=== PATIENT | male | born 1940 | race Caucasian/White ===

== ENCOUNTER 2019-12-23 10:46 | Outpatient (CLI) | payer OTHER, SELFPAY ==
--- NOTE | ~2019-12-23 | CT_ITS ---
EXAMINATION: CT abdomen wo con EXAM DATE: 12/23/2019 11:26 INDICATION: Pancreatic cystic lesion. TECHNIQUE: Spiral CT of the abdomen was performed without contrast. Axial, coronal and sagittal loraine ges were reviewed. The dose-length product (DLP) for this examination was 581.83 mGy-cm. The exposu re was tailored according to patient size (auto mA exposure control), and iterative reconstruction (A SIR) was used as additional dose reduction technique. Comparison is made to prior examination from , 05/23/2018. FINDINGS: Pancreatic head cystic lesion measuring 1.5 x 2.0 cm is unchanged going back to May 16. This likely benign histology. The differential diagnosis includes pseudocyst, intraductal papilla ry mucinous neoplasm (IPMN), mucinous cystic neoplasm (MCN), and the less common serous cystadenoma a nd neuroendocrine tumor. Correlate for history of pancreatitis. A longer interval, 2 year follow-up C T should be considered. The liver, spleen, adrenal glands and pancreas are otherwise unremarkable. Gallbladder is unremarkab le. No biliary obstruction. There is left inferior calyceal stone measuring 6 mm. Scattered small r enal lesions bilaterally consistent with cysts and mildly hemorrhagic cysts, also unchanged. There is no retroperitoneal lymphadenopathy. There is mild scattered arteriosclerotic disease. The stomach and small bowel are unremarkable. There is expected amount of colonic stool. No free i ntraperitoneal gas. The heart is normal in size. There are no pericardial or pleural effusions. R ight hemipelvis Paget's disease. Several small basilar calcified and noncalcified nodules unchanged, granulomas. IMPRESSION: 1. Stable pancreatic cystic lesion likely benign. Consider follow-up CT in 2 years. 2. Left nephrolithiasis. 3. Pelvic Paget's disease. Reviewed, dictated and finalized at location A. IMPRESSION: 1. Stable pancreatic cystic lesion likely benign. Consider follow-up CT in 2 y ears. 2. Left nephrolithiasis. 3. Pelvic Paget's disease.
== END 2019-12-23 10:47 | disposition home or self-care (01) ==
LOC: ANHIMG 10:48
PROVIDERS: PCP Internal Medicine; Visit Provider Internal Medicine
DX: K86.2 Cyst of pancreas (principal); N20.0 Calculus of kidney; M88.88 Osteitis deformans of other bones
CPT/HCPCS: 74150

== ENCOUNTER 2019-12-30 09:08 | Outpatient (CLI) | payer OTHER, SELFPAY ==
--- NOTE | 2019-12-30 11:30 | NEURO_ITS ---
Patient Number: [id number] Impression: # Complains of numbness of hands. # Bilateral mild Carpal Tunnel Syndrome. # Ulnar to median crossover innervation noted at wrist. # Normal needle/EMG exam. # Clinical correlation recommended. Nerve Conduction Studies Anti Sensory Summary Table Stim Site NR Peak (ms) P-T Amp (?V) Site1 Site2 Delta-P (ms) Dist (cm) Giacomo (m/s) Left Median Anti Sensory (2-3nd Digit) NO RESPONSE Wrist NR Wrist 2-3nd Digit 14.0 Wrist NR Wrist 2-3nd Digit 14.0 Right Median Anti Sensory (2-3nd Digit) Wrist 4.6 3.6 Wrist 2-3nd Digit 4.6 14.0 30 Wrist 5.2 0.5 Wrist 2-3nd Digit 4.6 14.0 30 Left Radial Anti Sensory (Base 1st Digit) Wrist 3.1 17.3 Wrist Base 1st Digit 3.1 0.0 Right Radial Anti Sensory (Base 1st Digit) Wrist 2.6 16.2 Wrist Base 1st Digit 2.6 0.0 Left Ulnar Anti Sensory (5th Digit) Wrist 3.0 9.9 Wrist 5th Digit 3.0 14.0 47 Right Ulnar Anti Sensory (5th Digit) Wrist 3.0 35.3 Wrist 5th Digit 3.0 14.0 47 Motor Summary Table Stim Site NR Onset (ms) O-P Amp (mV) Site1 Site2 Delta-0 (ms) Dist (cm) Giacomo (m/s) Left Median Motor (Abd Poll Brev) Wrist 4.1 1.4 Elbow Wrist 6.6 34.0 52 Elbow 10.7 1.6 Right Median Motor (Abd Poll Brev) Wrist 4.2 0.3 Elbow Wrist 5.5 30.0 55 Elbow 9.7 0.3 Left Ulnar Motor (Abd Dig Minimi) Wrist 3.0 3.7 A Elbow Wrist 5.6 32.0 57 A Elbow 8.6 2.9 Right Ulnar Motor (Abd Dig Minimi) Wrist 3.0 5.2 A Elbow Wrist 5.5 31.0 56 A Elbow 8.5 3.0 F Wave Studies NR F-Lat (ms) L-R F-Lat (ms) Left Median (Mrkrs) (Abd Poll Brev) 30.13 0.89 Right Median (Mrkrs) (Abd Poll Brev) 29.24 0.89 Left Ulnar (Mrkrs) (Abd Dig Min) 31.32 1.01 Right Ulnar (Mrkrs) (Abd Dig Min) 30.31 1.01 EMG Side Muscle Nerve Root Ins Act Fibs Amp Dur Recrt Comment Right 1stDorInt Ulnar C8-T1 Nml Nml Nml Nml Nml Right Ext Indicis Radial (Post Int) C7-8 Nml Nml Nml Nml Nml Right Ext Digitorum Radial (Post Int) C7-8 Nml Nml Nml Nml Nml Right BrachioRad Radial C5-6 Nml Nml Nml Nml Nml Right PronatorTeres Median C6-7 Nml Nml Nml Nml Nml Right Abd Poll Brev Median C8-T1 Nml Nml Nml Nml Nml Left 1stDorInt Ulnar C8-T1 Nml Nml Nml Nml Nml Left Ext Indicis Radial (Post Int) C7-8 Nml Nml Nml Nml Nml Left Ext Digitorum Radial (Post Int) C7-8 Nml Nml Nml Nml Nml Left BrachioRad Radial C5-6 Nml Nml Nml Nml Nml Left PronatorTeres Median C6-7 Nml Nml Nml Nml Nml Left Abd Poll Brev Median C8-T1 Nml Nml Nml Nml Nml Right ABD Dig Min Ulnar C8-T1 Nml Nml Nml Nml Nml Left ABD Dig Min Ulnar C8-T1 Nml Nml Nml Nml Nml MTDD
== END 2019-12-30 09:09 | disposition home or self-care (01) ==
LOC: ANHNEURO 09:10
PROVIDERS: PCP Internal Medicine; Visit Provider Internal Medicine
DX: R20.0 Anesthesia of skin (principal); G56.03 Carpal tunnel syndrome, bilateral upper limbs
CPT/HCPCS: 95886; 95911

== ENCOUNTER 2020-01-15 13:58 | Outpatient (CLI) | payer OTHER, SELFPAY ==
--- NOTE | 2020-01-15 13:59 | ECG_ITS ---
Measurements Intervals [place] Rate: 73 P: 16 MI: 197 QRS: -28 QRSD: 106 T: 9 QT: 366 QTc: 406 Interpretive Statements SINUS RHYTHM NORMAL ECG Electronically Signed On 01-15-2020 14:41:25 CDT by Robinson Hansen D.O.
== END 2020-01-15 13:59 | disposition home or self-care (01) ==
PROVIDERS: PCP Internal Medicine; Visit Provider Orthopaedic Surgery
DX: I10 Essential (primary) hypertension (principal)
CPT/HCPCS: 93005

== ENCOUNTER 2020-01-24 01:30 | Outpatient (CLI) | payer OTHER, SELFPAY ==
[2020-01-24 19:30] LABS: SARS-CoV-2 RNA PCR Negative
== END 2020-01-24 01:31 | disposition home or self-care (01) ==
LOC: ANHCOVIDDT 01:31
PROVIDERS: PCP Internal Medicine; Visit Provider Orthopaedic Surgery
DX: Z01.812 Encounter for preprocedural laboratory examination (principal); Z11.59 Encounter for screening for other viral diseases
CPT/HCPCS: 87635; C9803; U0003

== ENCOUNTER 2020-01-27 00:47 | Day surgery (SDC) | payer OTHER, SELFPAY ==
[2020-01-14 12:06] VITALS: BMI 29.3
--- NOTE | 2020-01-26 08:11 | PM.IMHP ---
H&P: HPI History of Present Illness Date/Time: Knee Pain Pt presents with Right knee pain. He had an MRI 06/15/19. Pt has had RICE, HEP, etc that no longer provide relief. He has not had any previous injuries or surgical procedures. Involved knee: right Onset: gradual Location of pain: medial, lateral, anterior and inferior Character: stabbing, dull ache and shooting Timing of pain: intermittent Exacerbated by: squatting, stairs and prolonged activity Relieved by: ice and rest Associated symptoms: Reports swelling, giving way and stiffness History of occupational/recreational activity with repetitive motion: No History of prior knee injury: No Chief complaint: Right Knee Medial Meniscus Tear Review of Systems Review of Systems: All systems reviewed & are unremarkable except as noted in HPI and below Constitutional: Constitutional: Denies headache(s) and Denies weakness Eyes: Eyes: Denies blurry vision, Denies change in vision and Denies loss of vision ENT: Denies dizziness, Denies dry mouth, Denies headache(s) and Denies nasal congestion Cardiovascular: Cardiovascular: Denies chest pain, Denies syncope, Denies leg edema and Denies dyspnea on exertion Respiratory: Respiratory: Denies cough and Denies dyspnea on exertion Gastrointestinal: Gastrointestinal: Denies abdominal pain, Denies constipation and Denies diarrhea Genitourinary: Genitourinary: Denies urinary frequency Musculoskeletal: Musculoskeletal: Reports as per HPI and Denies numbness Integumentary/Breasts: Skin/Breast: Reports system reviewed and no additional complaints, except as docu Neurologic: Denies dizziness, Denies syncope, Denies headache(s), Denies loss of vision, Denies numbness and Denies weakness Psychiatric: Psychiatric: Reports no additional psychiatric complaints Endocrine: Endocrine: Reports no additional endocrine complaints Hematologic/Lymphatic: Hematologic/Lymphatic: Reports no additional hematologic/lymphatic complaints [facility] Past Medical History Medical History Diabetes Family History Family History Mother Family history of diabetes mellitus in first degree relative Family history of heart disease in male family member before age 55 Patient's mother is Sibling Family history of diabetes mellitus in first degree relative Patient's brother is in good health Father Patient's father is Social History Social History Smoking status: Former smoker Smoking end date: 05/28/1964 Additional smoking assessment comments: STATES 1PK/DAY/QUIT 1964 Alcohol intake: never Substance use: never Spiritual care concerns: No Meds Home Medications and Allergies Home Medications Medication Instructions Recorded Confirmed Type metformin 500 mg tablet,extended 500 mg PO DAILY #90 tablet 12/19/19 01/14/20 Rx release 24hr chlorhexidine gluconate 4 % 1 applic TOPICAL ONCE #237 ml 12/23/19 01/14/20 Rx topical liquid azelastine 137 mcg (0.1 %) nasal 2 spray NASAL BID #30 ml 12/31/19 01/14/20 Rx spray aerosol gabapentin 100 mg PO DAILY 01/14/20 01/14/20 History lisinopril 40 mg DAILY 01/14/20 01/14/20 History omeprazole 40 mg PO DAILY 01/14/20 01/14/20 History verapamil 180 mg PO DAILY 01/14/20 01/14/20 History simvastatin 10 mg tablet 10 mg PO HS #90 tablet 01/16/20 Rx Allergies Allergy/AdvReac Type Severity Reaction Status Date / Time No Known Allergies Allergy Verified 01/14/20 11:30 Assessment and Plan Additional Plan 79 YO MALE WITH HX OF RIGHT KNEE MEDIAL AND LATERAL MENISCUS TEARS AND HIS PAIN IS WORSENING. HE HAS MINIMAL DJD AND HE HAS A PROVOCATIVE TEST FOR MEDIAL MENISCUS TEAR. RECOMMEND RIGHT KNEE SCOPE. WE DISCUSSED THE RISKS AND COMPLICATIONS OF SURGERY INCLUDING DVT PE INFECTION, RECURRENT TEAR AND
--- NOTE | 2020-01-26 08:17 | PM.IMHP ---
H&P: HPI History of Present Illness Chief complaint: Right Knee Medial Meniscus Tear Narrative: Date/Time: Knee Pain Pt presents with Right knee pain. He had an MRI 06/15/19. Pt has had RICE, HEP, etc that no longer provide relief. He has not had any previous injuries or surgical procedures. Involved knee: right Onset: gradual Location of pain: medial, lateral, anterior and inferior Character: stabbing, dull ache and shooting Timing of pain: intermittent Exacerbated by: squatting, stairs and prolonged activity Relieved by: ice and rest Associated symptoms: Reports swelling, giving way and stiffness History of occupational/recreational activity with repetitive motion: No History of prior knee injury: No Chief complaint: Right Knee Medial Meniscus Tear Review of Systems Review of Systems: All systems reviewed & are unremarkable except as noted in HPI and below Constitutional: Constitutional: Denies headache(s) and Denies weakness Eyes: Eyes: Denies blurry vision, Denies change in vision and Denies loss of vision ENT: Denies dizziness, Denies dry mouth, Denies headache(s) and Denies nasal congestion Cardiovascular: Cardiovascular: Denies chest pain, Denies syncope, Denies leg edema and Denies dyspnea on exertion Respiratory: Respiratory: Denies cough and Denies dyspnea on exertion Gastrointestinal: Gastrointestinal: Denies abdominal pain, Denies constipation and Denies diarrhea Genitourinary: Genitourinary: Denies urinary frequency Musculoskeletal: Musculoskeletal: Reports as per HPI and Denies numbness Integumentary/Breasts: Skin/Breast: Reports system reviewed and no additional complaints, except as docu Neurologic: Denies dizziness, Denies syncope, Denies headache(s), Denies loss of vision, Denies numbness and Denies weakness Psychiatric: Psychiatric: Reports no additional psychiatric complaints Endocrine: Endocrine: Reports no additional endocrine complaints Hematologic/Lymphatic: Hematologic/Lymphatic: Reports no additional hematologic/lymphatic complaints [facility] Past Medical History Medical History Diabetes Family History Family History Mother Family history of diabetes mellitus in first degree relative Family history of heart disease in male family member before age 55 Patient's mother is Sibling Family history of diabetes mellitus in first degree relative Patient's brother is in good health Father Patient's father is Social History Social History Smoking status: Former smoker Smoking end date: 05/28/1964 Additional smoking assessment comments: STATES 1PK/DAY/QUIT 1964 Alcohol intake: never Substance use: never Spiritual care concerns: No Meds Home Medications and Allergies Home Medications Medication Instructions Recorded Confirmed Type metformin 500 mg tablet,extended 500 mg PO DAILY #90 tablet 12/19/19 01/14/20 Rx release 24hr chlorhexidine gluconate 4 % 1 applic TOPICAL ONCE #237 ml 12/23/19 01/14/20 Rx topical liquid azelastine 137 mcg (0.1 %) nasal 2 spray NASAL BID #30 ml 12/31/19 01/14/20 Rx spray aerosol gabapentin 100 mg PO DAILY 01/14/20 01/14/20 History lisinopril 40 mg DAILY 01/14/20 01/14/20 History omeprazole 40 mg PO DAILY 01/14/20 01/14/20 History verapamil 180 mg PO DAILY 01/14/20 01/14/20 History simvastatin 10 mg tablet 10 mg PO HS #90 tablet 01/16/20 Rx Allergies Allergy/AdvReac Type Severity Reaction Status Date / Time No Known Allergies Allergy Verified 01/14/20 11:30 Exam Narrative: Exam Narrative: Extrem Right lower extremity: normal to inspection, full ROM, normal capillary refill and knee Details: normal to inspection, tenderness Location: medial joint line and lateral joint line, swelling, abnormal ROM Details: pain with active R
--- NOTE | 2020-01-26 09:10 | WPDANESEPP ---
[facility] - Eval Pre Procedure Procedure: Operation Date: 01/27/20 09:00 Proposed Procedures p Right Knee Arthroscopy, Proceed As Indicated - Az Zapata MD Date/Time: 01/26/20 09:10 Pre Op Diagnosis: Right Knee Medial Meniscus Tear Patient Data Age: 79 Gender: M Height: 1.8 m Weight: 95.45 kg Allergies Allergy/AdvReac Type Severity Reaction Status Date / Time No Known Allergies Allergy Verified 01/14/20 11:30 Home Medications Medication Instructions Recorded Confirmed Type metformin 500 mg tablet,extended 500 mg PO DAILY #90 tablet 12/19/19 01/14/20 Rx release 24hr chlorhexidine gluconate 4 % 1 applic TOPICAL ONCE #237 ml 12/23/19 01/14/20 Rx topical liquid azelastine 137 mcg (0.1 %) nasal 2 spray NASAL BID #30 ml 12/31/19 01/14/20 Rx spray aerosol gabapentin 100 mg PO DAILY 01/14/20 01/14/20 History lisinopril 40 mg DAILY 01/14/20 01/14/20 History omeprazole 40 mg PO DAILY 01/14/20 01/14/20 History verapamil 180 mg PO DAILY 01/14/20 01/14/20 History simvastatin 10 mg tablet 10 mg PO HS #90 tablet 01/16/20 Rx Patient hx anesthesia problems: none Family hx anesthesia problems: none PMFSH Past Medical History Medical History (Updated 01/26/20 @ 09:14 by Tacos Huynh CRNA) Back pain Cataract Diabetes GERD (gastroesophageal reflux disease) HTN (hypertension) Hypercholesteremia Kidney stone Prostate cancer Surgical History Surgical History H/O prostatectomy History of cardiac cath History of tonsillectomy Family History Family History Mother Family history of diabetes mellitus in first degree relative Family history of heart disease in male family member before age 55 Patient's mother is Sibling Family history of diabetes mellitus in first degree relative Patient's brother is in good health Father Patient's father is Social History Social History Smoking status: Former smoker Smoking end date: 05/28/1964 Additional smoking assessment comments: STATES 1PK/DAY/QUIT 1964 Alcohol intake: never Substance use: never Spiritual care concerns: No Exam Day of Procedure 01/26/20 09:10
[2020-01-27] VITALS (9 sets, daily range): BP systolic 102–139; BP diastolic 55–76; PULSE 61–80; RESP 12–18; TEMP 36.3–36.4; O2SAT 93–100
[2020-01-27] MEDS: CELECOXIB 200 MG CAPSULE PO (07:05)
[2020-01-27] MEDS: ACETAMINOPHEN 500 MG TABLET 1000 MG PO (07:05)
[2020-01-27] MEDS: LACTATED RINGERS 1,000 ML 30 ML IV CONT ×2 (07:10→10:56)
[2020-01-27 07:16] LABS: Glucose Point of Care 125 (65-105)
--- NOTE | 2020-01-27 08:39 | WPDANESEPPF ---
Anes - Initial Pre Proc Eval Procedure: Operation Date: 01/27/20 09:00 Proposed Procedures p Right Knee Arthroscopy, Proceed As Indicated - Az Zapata MD Date/Time: 01/27/20 08:39 Surgeon: Az Zapata MD Pre Op Diagnosis: Right Knee Medial Meniscus Tear Patient Data Age: 79 Gender: M Height: 5 ft 11 in Weight: 92.1 kg Last Vital Signs Temp 36.4 C L 01/27/20 07:38 Pulse 80 01/27/20 07:38 Resp 18 01/27/20 07:38 BP 139/76 01/27/20 07:38 Pulse Ox 96 01/27/20 07:38 Allergies Allergy/AdvReac Type Severity Reaction Status Date / Time No Known Allergies Allergy Verified 01/27/20 07:17 Home Medications Medication Instructions Recorded Confirmed Type metformin 500 mg tablet,extended 500 mg PO DAILY #90 tablet 12/19/19 01/27/20 Rx release 24hr azelastine 137 mcg (0.1 %) nasal 2 spray NASAL BID #30 ml 12/31/19 01/27/20 Rx spray aerosol gabapentin 100 mg PO DAILY 01/14/20 01/27/20 History lisinopril 40 mg DAILY 01/14/20 01/27/20 History omeprazole 40 mg PO DAILY 01/14/20 01/27/20 History verapamil 180 mg PO DAILY 01/14/20 01/27/20 History simvastatin 10 mg tablet 10 mg PO HS #90 tablet 01/16/20 01/27/20 Rx Laboratory Tests 01/27/20 07:11 POC Capillary Glucose 125 mg/dl H mg/dl (65-105) Patient hx anesthesia problems: none Family hx anesthesia problems: none PMFSH Past Medical History Medical History Back pain Cataract Diabetes GERD (gastroesophageal reflux disease) HTN (hypertension) Hypercholesteremia Kidney stone Prostate cancer Surgical History Surgical History H/O prostatectomy History of cardiac cath History of tonsillectomy Family History Family History Mother Family history of diabetes mellitus in first degree relative Family history of heart disease in male family member before age 55 Patient's mother is Sibling Family history of diabetes mellitus in first degree relative Patient's brother is in good health Father Patient's father is Social History Social History Smoking status: Former smoker Smoking end date: 05/28/1964 Additional smoking assessment comments: STATES 1PK/DAY/QUIT 1964 Alcohol intake: never Substance use: never Living arrangements: with family Spiritual care concerns: No Anes - Eval Final PreProcedure Day of Procedure 01/27/20 08:39 Patient weight: overweight Heart: regular rate and rhythm Lungs: decreased breath sounds Airway: Mallampati scale class II Neurological: other (alert) Last oral intake: >/= 8 hours ASA classification: III Emergent: no Anesthetic plan: proceed Anesthesia type and monitoring: general LMA and standard monitoring Informed Consent: The patient's anesthetic plan and its attendant risks and benefits were discussed with the patient/family/POA. Questions were solicited and answers provided to the satisfaction of the patient/family/POA.
--- NOTE | 2020-01-27 08:56 | WPDHPUPDATE1 ---
History and Physical Update Update Date/Time: 01/27/20 08:56 History and Physical has been reviewed, including an updated exam of the patient. There are NO changes in the patient's condition. Risks, benefits, and alternatives have been discussed and questions answered. Patient agrees to proceed with procedure.
[2020-01-27] MEDS: ceFAZolin 2 GM/D5W 50 ML 2 GM/50 ML BAG IVPB (09:02)
--- NOTE | 2020-01-27 10:29 | PM.OP ---
Procedure Note - Brief Procedure Note - Brief Date of procedure: 01/27/20 Pre-op diagnosis: Right Knee Lateral Meniscus Tear Post-op diagnosis: same Procedure performed: R KNEE SCOPE Anesthesia: GLMA Surgeon: Az Zapata MD Estimated blood loss (mL): 5 Complications: No immediate complications Condition: stable Disposition: PACU
--- NOTE | 2020-01-27 10:33 | PM.PROC ---
Procedure Note - Detailed Date of procedure: 01/27/20 Pre-op diagnosis: Right Knee Lateral Meniscus Tear Post-op diagnosis: same Procedure performed: RIGHT KNEE SCOPE WITH PARTIAL LATERAL MENISCECTOMY AND MAJOR SYNOVECTOMY Description of procedure: PATIENT WAS TAKEN TO THE OR. RIGHT LEG WAS PREPPED AND DRAPED STERILE. TROCARS WERE PLACED IN THE USUAL FASHION. CAMERA WAS INTRODUCED. THERE WAS CHONDROMALACIA TO THE PATELLA FEMORAL JOINT. THERE WAS A LOT OF SYNOVITIS IN ALL COMPARTMENTS. THE MEDIAL COMPARTMENT SHOWED CHONDROMALACIA TO THE MED FEMORAL CONDYLE. A SHAVER WAS USED TO PREFORM A CHONDROPLASTY. THERE WAS NO MEDIAL MENISCUS TEAR. THE ACL WAS INTACT. THE LATERAL MENISCUS WAS TORN AND UNDERWENT RESECTION OF ABOUT 15 % THE LAT FEMORAL CONDYLE UNDERWENT CHONDROPLASTY. A SYNOVECTOMY WAS PREFORMED. THE PATELLO FEMORAL JOINT UNDERWENT CHONDROPLASTY. SYNOVECTOMY WAS PREFORMED IN THE SUPERIOR MEDIAL COMPARTMENT. THE WOUNDS WERE APPROXIMATED WITH 4.0 NYLON. STERILE DRESSING WAS APPLIED. PATIENT WAS EXTUBATED. Anesthesia: GLMA Surgeon: Az Zapata MD Estimated blood loss (mL): 5 Complications: No immediate complications Condition: stable Disposition: PACU
[2020-01-27 10:50] LABS: Glucose Point of Care 116 (65-105)
--- NOTE | 2020-01-27 11:21 | SUR.PHASEI ---
01/27/20 1120- PATIENT'S HEARING AIDES PLACED BACK IN EARS.
== END 2020-01-27 12:15 | disposition home or self-care (01) ==
PROVIDERS: PCP Internal Medicine; Visit Provider Orthopaedic Surgery
PROC: (CPT 29870; principal; 2020-01-27 09:00)
DX: S83.281A Other tear of lateral meniscus, current injury, right knee, initial encounter (principal); E11.9 Type 2 diabetes mellitus without complications; Z79.84 Long term (current) use of oral hypoglycemic drugs; Z79.899 Other long term (current) drug therapy; Z87.891 Personal history of nicotine dependence; X58.XXXA Exposure to other specified factors, initial encounter
CPT/HCPCS: 29881; A9270; J0690; J2370; J2405; J2704; J3010; J7120

== ENCOUNTER 2020-09-01 12:35 | Observation (INO) | payer OTHER, SELFPAY ==
[2020-09-01] VITALS (20 sets, daily range): BP systolic 106–146; BP diastolic 54–68; PULSE 80–92; RESP 16–28; TEMP 36.2–37.8; O2SAT 92–100; BMI 29.0
--- NOTE | ~2020-09-01 | XR_ITS ---
EXAMINATION: XR chest 1V portable DATE: 09/01/2020 14:44 INDICATION: Weakness. Hyperglycemia. TECHNIQUE: A single frontal view of the chest was obtained. COMPARISON: Chest 2 views 02/11/2018, CT abdomen 12/23/2019 FINDINGS: There is chronic elevation of right hemidiaphragm. No pneumonia, pleural effusion, or pneum othorax. The heart size is normal. IMPRESSION: 1. Chronic elevation of right hemidiaphragm. Reviewed, dictated and finalized at location A.
[2020-09-01 13:02] LABS: Glucose Point of Care 201 (65-105)
--- NOTE | 2020-09-01 14:01 | ECG_ITS ---
Measurements Intervals [place] Rate: 85 P: 21 [place]: 183 QRS: -18 QRSD: 102 T: 28 QT: 348 QTc: 416 Interpretive Statements SINUS RHYTHM INCOMPLETE RIGHT BUNDLE BRANCH BLOCK BORDERLINE ECG Electronically Signed On 09-01-2020 14:44:52 CDT by Robinson Hansen D.O.
[2020-09-01 14:35] LABS: Basophils Percent Auto 0.1 % (0.2-1.2); Eosinophils Percent Auto 0.1 % (0-4.4); Hematocrit 39.5 % (42.0-52.0); Hemoglobin 12.8 g/dL (14.0-18.0); Immature Granulocyte Absolute 0.06 K/mm3 (0.00-0.031); Immature Granulocyte Percent A 0.5 % (0-0.5); Lymphocytes Absolute Auto 0.51 K/mm3 (0.9-3.2); Lymphocytes Percent Auto 4.1 % (18.3-44.2); Mean Corpuscular HGB Conc 32.4 g/dl (32-36); Mean Corpuscular Hemoglobin 27.9 pg (26-34); Mean Corpuscular Volume 86.1 fl (80-100); Mean Platelet Volume 12.3 fl (7.4-10.4); Monocytes Absolute Auto 0.7 K/mm3 (0.1-0.6); Monocytes Percent Auto 5.8 % (2.6-8.5); Neutrophils Absolute Auto 11.1 K/mm3 (1.3-6.7); Neutrophils Percent Auto 89.4 % (45.5-73.1); Platelet Count Result 198 k/mm3 (150-375); Red Blood Count 4.59 M/mm3 (4.6-6.20); Red Cell Distribution Width 14.6 % (11.5-14.5); White Blood Count 12.4 K/mm3 (4.5-10.0)
[2020-09-01 14:40] LABS: Add Urine Microscopic? YES; Appearance Urine Cloudy (Clear); Bacteria Urine 4+ /hpf; Bilirubin Urine 1+ (Negative); Color Urine Amber (Yellow); Glucose Urine UA 1+ mg/dL (Negative); Ketones Urine Negative (Negative); Leukocyte Esterase Ur 1+ LEU/UL (Negative); Mucus Urine Heavy /lpf; Nitrate Urine Positive (Negative); Protein Urine 2+ mg/dL (Negative); Squamous Epithelial Cell Urine Rare /hpf (Few); WBC Urine 51-75 /hpf
[2020-09-01 14:49] LABS: Alanine Aminotransferase 18 U/L (4-50); Albumin Level 4.5 g/dL (3.5-5.1); Alkaline Phosphatase 60 U/L (38-126); Anion Gap 3 mmol/L (8-16); Aspartate Amino Transferase 28 U/L (17-59); Bilirubin,Total 0.9 mg/dL (0.2-1.3); Blood Urea Nitrogen 20 mg/dL (9-20); Calcium 9.3 mg/dL (8.4-10.2); Carbon Dioxide 31 mmol/L (22-30); Chloride 102 mmol/L (98-107); Estimated CRCL calculation 60 ml/min; Estimated Glomerular Filt Rate > 60; Glucose 148 mg/dL (75-110); Potassium 4.7 mmol/L (3.4-5.0); Sodium 136 mmol/L (137-145)
[2020-09-01 14:52] LABS: Blood Urine Negative (Negative)
[2020-09-01 15:00] LABS: Troponin I < 0.012 ng/mL (0.000-0.034)
--- NOTE | 2020-09-01 15:33 | ED.GENADULT ---
HPI - General Adult General Chief complaint: Recheck/Abnormal Lab/Rx Stated complaint: elevated blood sugar Time Seen by Provider: 09/01/20 13:57 Source: patient and RN notes reviewed Limitations: no limitations History of Present Illness HPI narrative: Patient is 80 years old white male brought to the emergency room by his because of elevated blood glucose, fever, nausea and vomiting, general weakness and not feeling well started yesterday. Patient has been vaccinated for COVID-19 twice, last 1 was 1 month ago. Patient denies any chest pain, shortness of breath, coughing, headache, back pain or abdominal pain. Related Data Allergies Allergy/AdvReac Type Severity Reaction Status Date / Time No Known Allergies Allergy Verified 06/03/20 10:17 Review of Systems Review of Systems: Narrative: CONSTITUTIONAL: Denies fever, chills, or sweats. EYES: Denies visual changes, redness, or discharge. ENT: Denies rhinorrhea, congestion, sore throat, or otalgia. CARDIOVASCULAR: Denies chest pain, palpitations, or edema. RESPIRATORY: Denies cough or dyspnea. GASTROINTESTINAL: Denies abdominal pain, nausea, vomiting, or diarrhea. GENITOURINARY: Denies dysuria or hematuria. SKIN: Denies rash or itching. MUSCULOSKELETAL: Denies back pain, joint pain, or myalgia. NEUROLOGIC: Denies headache, numbness, or weakness. PSYCHIATRIC: Denies anxiety or depression. [facility] Past Medical History Medical History (Updated 09/01/20 @ 15:36 by Juliana Arteaga MD) Back pain Cataract Diabetes GERD (gastroesophageal reflux disease) HTN (hypertension) Hypercholesteremia Kidney stone Prostate cancer Surgical History Surgical History H/O prostatectomy History of cardiac cath History of tonsillectomy Family History Family History Mother Family history of diabetes mellitus in first degree relative Family history of heart disease in male family member before age 55 Patient's mother is Sibling Family history of diabetes mellitus in first degree relative Patient's brother is in good health Father Patient's father is Social History Social History Smoking status: Former smoker Smoking end date: 05/28/1964 Additional smoking assessment comments: STATES 1PK/DAY/QUIT 1964 Alcohol intake: never Substance use: never Gender identity (if verbalized by the patient): Female Spiritual care concerns: No Exam Narrative: Exam Narrative: General appearance: Well-developed, well-nourished Skin: Normal color Head: Normocephalic, nontraumatic Eyes: Clear conjunctiva ENT: Oropharynx normal, ears normal, nose normal Neck: Supple, nontender Chest and respiratory: Airway patent, no respiratory distress, no accessory muscle use Heart: Regular rate/rhythm Abdomen: Soft, nontender, no organomegaly, quiet bowel sounds Vascular: Normal peripheral pulses, normal capillary refill. 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
[2020-09-01] MEDS: SODIUM CHLORIDE 0.9% IV 1,000 ML 500 ML IV CONT (16:01)
[2020-09-01] MEDS: ACETAMINOPHEN 325 MG TABLET 650 MG PO (16:28)
[2020-09-01] MEDS: SODIUM CHLORIDE 0.9% IV 1,000 ML 75 ML IV CONT (17:52)
--- NOTE | 2020-09-01 18:00 | ADMGEN ---
This patient, Bakari Weathers, was admitted to Medical Room 254-01. Patient/family oriented to hospital policies and general routines including ID bracelet, bed and alarms, visiting hours, pain management, procedures, bathroom and other care routines, personal items, smoking policy, room service/diet, and visiting hours. Information on how to activate the Rapid Response Team has been discussed. Patient/Family are encouraged to report perceived risks to care and to ask questions if they do not understand what they are told or what they should do.
--- NOTE | 2020-09-01 20:33 | PM.IMHP ---
H&P: HPI History of Present Illness Date/Time: 09/01/20 22:00 Chief Complaint: High glucoses Narrative: 80-year-old male with past medical history of diabetes mellitus, peripheral neuropathy, hypertension prostatectomy 2006 who presented to the ER with chills, hyperglycemia and emesis x1. Today the patient's was concerned because the patient was not acting like his usual self. She checked his glucoses at that time and they were around 202. He does not usually check his glucoses but his hemoglobin A1c in April 2020 was down to 5.9. His reported the patient was not as active. He also reports that he had an episode of chills a couple of days ago. He denies actually having measured at temperature. He denies feeling feverish however when he arrived to the ER his temperature was 100.1?. He denies any decreased appetite and states that he will eat anything the put in front of him. He has not had any nausea or vomiting. He denies any suprapubic pain, dysuria, hematuria or foul-smelling urine. He does have chronic leakage of urine due to his history of radical prostatectomy in 2006. He does have difficulty starting and stopping his urinary stream but this is unchanged from baseline. He has not had any abdominal symptoms and reports that is chronic constipation is managed well with MiraLax. Review of Systems Review of Systems: Narrative: 12 systems were reviewed with pertinent positives and negatives per HPI. Except as documented in the HPI, all other systems were reviewed and are negative. [facility] Past Medical History Medical History (Updated 09/01/20 @ 20:57 by Kateryna Correa DO) Abnormal PFT (~02/2018) Obstructive ventilatory defect suggested with decreased FVC/SVC but timed flows are normal. Mildly decreased DLCO Benign paroxysmal positional vertigo Cataract Diabetes mellitus type 2 in nonobese Hemoglobin A1c of 5.05 May 2020 Essential hypertension GERD (gastroesophageal reflux disease) Hypercholesteremia Kidney stone Paget's disease of bone Pancreatic cyst Prostate cancer Small bowel obstruction (~04/2018) Surgical History Surgical History (Updated 09/01/20 @ 20:41 by Kateryna Correa DO) H/O lateral meniscus repair of right knee (01/27/20) History of basal cell carcinoma (BCC) With prior resection History of cardiac cath Reportedly normal History of colonoscopy with polypectomy (~05/2017) Internal hemorrhoids, and melanosis coli noted on colonoscopy performed by Dr. Alberto. Pathology consistent with tubulovillous adenoma History of esophagogastroduodenoscopy (EGD) (~06/2006) Demonstrated esophagitis History of exploratory laparotomy (~1965) History of radical prostatectomy (~08/2006) History of tonsillectomy Status post cataract extraction of both eyes with insertion of intraocular lens Family History Family History Mother Diabetes mellitus Heart disease Sibling Diabetes mellitus Father Motor vehicle crash, injury Son Diabetes mellitus Social History Social History (Updated 09/02/20 @ 02:10 by Kateryna Correa DO) Social History: Ryan Purdy with his . 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 He has a remote history of smoking and quit 1968. He has been 3 times. He has been to his current for approximately 26 years. He has a total of 10 children. Primary care physician: Dr. Ivan Bacon Code status: Full code Surrogate decision maker: Caprice () Smoking packs per day: 1 Smoking cigarettes per day: 20.0 Smoking status: Former smoker Tobacco type: cigarettes Smoking end date: 05/28/1964 Alcohol intake: never Substance use: never Substance use type: does not use Gender identity (if verbalized by the patient): Male Sexual Orientation (if Verbalized by the Patient): Straight or Heterosexual Spiritual care concerns: No Meds Home Medications and Allergi
[2020-09-01] MEDS: polyethylene glycoL 3350 17 GM POWD.PACK PO (21:45)
[2020-09-01] MEDS: AZELASTINE HCL NASAL 0.1% 137 MCG/SPR 30 ML BTL 2 SPRAY NASAL (21:45)
[2020-09-01 23:41] LABS: Glucose Point of Care 137 (65-105); Glucose Point of Care 79 (65-105)
[2020-09-02 05:30] LABS: Hematocrit 34.5 % (42.0-52.0); Hemoglobin 11.3 g/dL (14.0-18.0); Mean Corpuscular HGB Conc 32.8 g/dl (32-36); Mean Corpuscular Hemoglobin 28.1 pg (26-34); Mean Corpuscular Volume 85.8 fl (80-100); Mean Platelet Volume 11.8 fl (7.4-10.4); Platelet Count Result 147 k/mm3 (150-375); Red Blood Count 4.02 M/mm3 (4.6-6.20); Red Cell Distribution Width 14.8 % (11.5-14.5); White Blood Count 6.7 K/mm3 (4.5-10.0)
[2020-09-02 05:34] VITALS: BP 119/65; PULSE 85; RESP 16; TEMP 36.4; O2SAT 94
[2020-09-02 05:53] LABS: Anion Gap 3 mmol/L (8-16); Blood Urea Nitrogen 17 mg/dL (9-20); Calcium 7.9 mg/dL (8.4-10.2); Carbon Dioxide 28 mmol/L (22-30); Chloride 104 mmol/L (98-107); Estimated CRCL calculation 76 ml/min; Estimated Glomerular Filt Rate > 60; Glucose 127 mg/dL (75-110); Potassium 4.3 mmol/L (3.4-5.0); Sodium 135 mmol/L (137-145)
[2020-09-02] MEDS: SODIUM CHLORIDE 0.9% IV 1,000 ML 75 ML IV CONT (06:14)
[2020-09-02 07:52] LABS: Glucose Point of Care 136 (65-105)
[2020-09-02 08:39] LABS: Hemoglobin A1C 6.2 % (<5.7)
[2020-09-02] MEDS: AZELASTINE HCL NASAL 0.1% 137 MCG/SPR 30 ML BTL 2 SPRAY NASAL ×2 (09:16→21:04)
[2020-09-02] MEDS: ENOXAPARIN 40 MG/0.4 ML SYRINGE SUB-Q (09:16)
[2020-09-02] MEDS: PANTOPRAZOLE 40 MG TABLET PO (09:17)
[2020-09-02] MEDS: VERAPAMIL HCL 180 MG TABLET ER PO (09:17)
[2020-09-02] MEDS: GABAPENTIN 100 MG CAPSULE PO (09:17)
[2020-09-02] MEDS: lisinopriL 20 MG TABLET 40 MG PO (09:17)
--- NOTE | 2020-09-02 10:19 | PM.IMPN ---
Progress Note: A&P Assessment and Plan (1) Urinary tract infection: Qualifiers: Hematuria presence: with hematuria Urinary tract infection type: site unspecified Qualified Code(s): N39.0 - Urinary tract infection, site not specified; R31.9 - Hematuria, unspecified Code(s): N39.0 - Urinary tract infection, site not specified Status: Acute Assessment and Plan: Urinalysis is grossly abnormal. He had a temperature of 100.1F yesterday afternoon and has been afebrile since. He had nausea and emesis x1 and his felt that he was acting a bit strange. He is now at baseline and A&Ox4. He has no CVA tenderness. WBC has normalized. Continue empiric ceftriaxone Stop IV fluids since he is eating and drinking well Await urine culture results and adjust antibiotics accordingly (2) Diabetes mellitus with hyperglycemia: Qualifiers: Diabetes mellitus type: type 2 Diabetes mellitus roasterman insulin use: without roasterman use Qualified Code(s): E11.65 - Type 2 diabetes mellitus with hyperglycemia Code(s): E11.65 - Type 2 diabetes mellitus with hyperglycemia Status: Chronic Assessment and Plan: The patient notes that his blood sugars have been a bit high recently with readings in the 200s. Acute blood sugar elevation from baseline likely secondary to UTI. Hemoglobin A1c is 6.2% 09/02/20 which indicates that blood sugars have been generally well-controlled over the past 3 months. Blood sugars are acceptable. Continue metformin Continue ACHS glucose monitoring, sliding scale insulin, and hypoglycemia protocol (3) Essential hypertension: Code(s): I10 - Essential (primary) hypertension Status: Chronic Assessment and Plan: Blood pressures reviewed and are reasonable. Most recent BP 119/65. Continue lisinopril and verapamil Continue to monitor and adjust treatment as necessary (4) Hypercholesteremia: Code(s): E78.00 - Pure hypercholesterolemia, unspecified Status: Chronic Assessment and Plan: LFTs are normal. Continue simvastatin Subjective Date/time seen: 09/02/20 10:19 Mr. Weathers is an 80 y.o. male with PMH significant for T2DM, BPPV, GERD, hypertension, hyperlipidemia, peripheral neuropathy, hypertension, and prostate cancer s/p prostatectomy in 2006 who is seen in follow-up for uncomplicated urinary tract infection. He is doing well. He notes that he felt a bit off balance yesterday but this has resolved completely. He ambulated with me while in the room and did very well with no dizziness, lightheadedness, or balance issue. He is not having any dysuria, hematuria, abdominal pain, or flank pain. He has some chronic LUTS following prostatectomy but this is unchanged from baseline. He has no nausea or vomiting. He slept well and he is tolerating his diet, eating and drinking well. He has no chest pain or dyspnea. His last bowel movement was yesterday and he notes that it is not uncommon for him to go every other day. He does not feel constipated. He denies leg pain and swelling. Review of Systems Review of Systems: All systems reviewed & are unremarkable except as noted in HPI and below Exam Narrative: Exam Narrative: General: Very pleasant, well-developed, and well-nourished 80 y.o. male sitting up in bed in no acute distress. HEENMT: Normocephalic and atraumatic. Sclera anicteric. EOMI. Corrective lenses in place. Dentures present. Oral mucosa moist. Neck: Supple. Cardiac: Regular rate and rhythm. S1 and S2 normal. : No CVA tenderness. Lungs: Effort normal. Lungs are clear to auscultation bilaterally. Abdomen: Positive bowel sounds. Abdomen is obese, soft, non-distended, and non-tender. Extremities: Warm and well-perfused. No lower extremity edema or calf tenderness. Posterior tibialis 2+ bilaterally. Neurological: Alert and oriented x4. CN II-XII grossly intact. Superintendent Pier strength and lower extremity strength 5/5
[2020-09-02 10:42] VITALS: O2SAT 92
--- NOTE | 2020-09-02 11:08 | PC.NURSE ---
On 09/02/20, the student, [ Ryan Kenney], provided care and completed [facility] documentation on this patient. I have reviewed the student's documentation and agree with the findings.
[2020-09-02 11:30] LABS: Glucose Point of Care 143 (65-105)
[2020-09-02 14:00] VITALS: BP 120/54; PULSE 83; RESP 18; TEMP 36.6; O2SAT 93
[2020-09-02] MEDS: metFORMIN HCL XR 500 MG TAB.SR.24H PO (17:28)
[2020-09-02 17:36] LABS: Glucose Point of Care 170 (65-105)
[2020-09-02 20:00] VITALS: BP 114/54; PULSE 69; RESP 16; TEMP 37.6; O2SAT 96
[2020-09-02] MEDS: SIMVASTATIN 10 MG TABLET PO (21:04)
[2020-09-02] MEDS: polyethylene glycoL 3350 17 GM POWD.PACK PO (21:04)
[2020-09-02 22:23] LABS: Glucose Point of Care 160 (65-105)
[2020-09-03 05:34] VITALS: BP 148/74; PULSE 78; RESP 18; TEMP 36.7; O2SAT 94
[2020-09-03 06:18] LABS: Hematocrit 34.1 % (42.0-52.0); Hemoglobin 11.1 g/dL (14.0-18.0); Mean Corpuscular HGB Conc 32.6 g/dl (32-36); Mean Corpuscular Hemoglobin 27.8 pg (26-34); Mean Corpuscular Volume 85.3 fl (80-100); Mean Platelet Volume 12.1 fl (7.4-10.4); Platelet Count Result 163 k/mm3 (150-375); Red Cell Distribution Width 14.7 % (11.5-14.5); White Blood Count 7.6 K/mm3 (4.5-10.0)
[2020-09-03 06:24] LABS: Anion Gap 5 mmol/L (8-16); Blood Urea Nitrogen 17 mg/dL (9-20); Calcium 8.3 mg/dL (8.4-10.2); Carbon Dioxide 28 mmol/L (22-30); Chloride 103 mmol/L (98-107); Estimated CRCL calculation 67 ml/min; Estimated Glomerular Filt Rate > 60; Glucose 120 mg/dL (75-110); Magnesium 1.8 mg/dL (1.6-2.3); Potassium 4.1 mmol/L (3.4-5.0); Sodium 136 mmol/L (137-145)
[2020-09-03] MEDS: AZELASTINE HCL NASAL 0.1% 137 MCG/SPR 30 ML BTL 2 SPRAY NASAL (08:25)
[2020-09-03] MEDS: PANTOPRAZOLE 40 MG TABLET PO (08:25)
[2020-09-03] MEDS: ENOXAPARIN 40 MG/0.4 ML SYRINGE SUB-Q (08:25)
[2020-09-03] MEDS: VERAPAMIL HCL 180 MG TABLET ER PO (08:25)
[2020-09-03] MEDS: GABAPENTIN 100 MG CAPSULE PO (08:25)
[2020-09-03] MEDS: lisinopriL 20 MG TABLET 40 MG PO (08:25)
[2020-09-03 08:50] LABS: Glucose Point of Care 119 (65-105)
--- NOTE | 2020-09-03 10:03 | PM.DS ---
DS: Admitting Diagnosis Admitting Diagnosis Admitting Diagnosis: Uncomplicated urinary tract infection DS: Discharge Diagnosis Discharge Diagnosis (1) Urinary tract infection: Qualifiers: Hematuria presence: with hematuria Urinary tract infection type: site unspecified Qualified Code(s): N39.0 - Urinary tract infection, site not specified; R31.9 - Hematuria, unspecified Code(s): N39.0 - Urinary tract infection, site not specified Status: Acute Assessment and Plan: Discharge Summary (Date of service 09/03/20): Mr. Weathers is an 80 y.o. male with PMH significant for PMH significant for T2DM, essential hypertension, hyperlipidemia, BPPV, prostate cancer s/p prostatectomy in 2006 who presented to the emergency department on 09/01/20 for the evaluation of elevated blood sugar of 202 which is higher than usual for him and his feeling like he was not acting quite like his normal self. Vitals were stable on arrival to the emergency department. WBC was elevated at 12,400 with a left shift. CXR showed chronic elevation of the right hemidiaphragm. Glucose was 201. He had a temperature of 100.1F the afternoon of 09/01/20. He also noted some mild nausea and emesis x1. Urinalysis was grossly abnormal. Urine and blood cultures were obtained and he was treated with IV ceftriaxone and IV fluids and admitted to the hospitalist service for further care. He did very well and was at his baseline mental status with no further fevers. He felt much better and requested discharge. He had no further nausea, vomiting, or abdominal pain. His urine culture demonstrated Klebsiella pneumoniae which was susceptible to ceftriaxone. He was discharged on oral cefdinir for 7 days to complete 10 days of treatment. Worrisome signs and symptoms which would warrant return to the emergency department were discussed and he verbalized understanding. (2) Diabetes mellitus with hyperglycemia: Qualifiers: Diabetes mellitus intermediate accountant insulin use: without snf use Diabetes mellitus type: type 2 Qualified Code(s): E11.65 - Type 2 diabetes mellitus with hyperglycemia Code(s): E11.65 - Type 2 diabetes mellitus with hyperglycemia Status: Chronic Assessment and Plan: The patient noted that his blood sugars were high recently with readings in the 200s. Hemoglobin A1c is 6.2% 09/02/20 indicating that his blood sugars have been generally well-controlled over the past 3 months. Acute blood sugar elevation from baseline was likely secondary to UTI. His home metformin was continued and he was advised to continue close monitoring of his blood sugars. (3) Essential hypertension: Code(s): I10 - Essential (primary) hypertension Status: Chronic Assessment and Plan: Blood pressures were reviewed and were reasonable. Lisinopril and verapamil were continued. (4) Hypercholesteremia: Code(s): E78.00 - Pure hypercholesterolemia, unspecified Status: Chronic Assessment and Plan: LFTs are normal. Simvastatin was continued. DS: Summary Hospital Course Hospital Course: As above. Time Spent with Patient Time attestation: Total time spent providing and/or coordinating discharge services: 35 minutes Exam Narrative: Exam Narrative: Vitals at presentation: Temp Pulse Resp BP Pulse Ox 99.3 F 89 16 142/68 H 95 09/01/20 12:54 09/01/20 12:54 09/01/20 12:54 09/01/20 12:54 09/01/20 12:54 Vitals at discharge: Temp Pulse Resp BP Pulse Ox 98.1 F 78 18 148/74 H 94 09/03/20 05:34 09/03/20 05:34 09/03/20 05:34 09/03/20 05:34 09/03/20 05:34 General: Pleasant, well-developed, and well-nourished 80 y.o. male sitting up in bed in no acu
== END 2020-09-03 12:00 | disposition home or self-care (01) ==
LOC: ANHED 15:44 → ANH2MED 16:10
PROVIDERS: Internal Medicine; Admitting Provider Family Medicine; Emergency Provider Emergency Medicine; PCP Internal Medicine; Visit Provider Physician Assistant
DX: N39.0 Urinary tract infection, site not specified (principal); R31.9 Hematuria, unspecified; E11.65 Type 2 diabetes mellitus with hyperglycemia; E11.42 Type 2 diabetes mellitus with diabetic polyneuropathy; E78.00 Pure hypercholesterolemia, unspecified; H81.10 Benign paroxysmal vertigo, unspecified ear; I10 Essential (primary) hypertension; Z90.79 Acquired absence of other genital organ(s); Z85.46 Personal history of malignant neoplasm of prostate; Z87.891 Personal history of nicotine dependence; Z79.84 Long term (current) use of oral hypoglycemic drugs
CPT/HCPCS: 36415; 71045; 80048; 80053; 81001; 82948; 83036; 83735; 84484; 85025; 85027; 87077; 87086; 87088; 87186; 93005; 96361; 96365; 96376; 97116; 97161; 97165; 99285; A9270; G0378; J0696; J1650; J7030

== ENCOUNTER 2020-09-19 10:13 | Outpatient (CLI) | payer OTHER, SELFPAY ==
--- NOTE | ~2020-09-19 | MR_ITS ---
EXAMINATION: MR abdomen wo/w con DATE: 09/19/2020 11:54 INDICATION: Cyst of pancreas. TECHNIQUE: Magnetic resonance imaging (MRI) of the abdomen was performed without and with 18 mL Multi Anju intravenous contrast. Sequences included coronal T2-weighted FS FSE, coronal and axial FS FIEST A, axial T2-weighted FSE, coronal LAVA-flex, axial STIR FSE, axial DWI, axial dual-echo T1-weighted F SPGR, and axial LAVA. Postcontrast sequences included coronal LAVA-flex and a time course of axial LA VA. COMPARISON: CT abdomen 12/23/2019, 03/13/19, 05/23/18, 08/23/15 FINDINGS: There are cysts in the liver measuring up to 5 mm. The gallbladder is normal. There is mild splenomeg sherry. There is a 7 mm cyst in the spleen. There are 3 cystic lesions in the pancreas measuring up to 1 6 mm. The adrenal glands are normal. There are simple cysts and hemorrhagic cysts in the kidneys jorge uring up to 2.8 cm on the right. There are no dilated loops of bowel. There are no pathologically enl arged lymph nodes. There is no free intraperitoneal fluid. IMPRESSION: 1. 3 cystic lesions of the pancreas measuring up to 16 mm, stable from 05/23/2018 and worsened from . The differential diagnosis includes pseudocyst, intraductal papillary mucinous neoplasm (IP MN), mucinous cystic neoplasm (MCN), serous cystadenoma, and neuroendocrine tumor. Consider abdomen M RI without and with contrast in two years. Reviewed, dictated and finalized at location A. IMPRESSION: 1. 3 cystic lesions of the pancreas measuring up to 16 mm, stable from 05/23/20 and worsened from 08/23/2015. The differential diagnosis includes pseudocyst, intraductal papillary mucinous neoplasm (IPMN), mucinous cystic neoplasm (MCN) , serous cystadenoma, and neuroendocrine tumor. Consider abdomen MRI without an d with contrast in two years.
== END 2020-09-19 10:14 | disposition home or self-care (01) ==
PROVIDERS: PCP Internal Medicine; Visit Provider Internal Medicine
DX: K86.2 Cyst of pancreas (principal)
CPT/HCPCS: 74183; A9577

== ENCOUNTER 2020-09-23 08:19 | Inpatient (IN) | payer OTHER, SELFPAY ==
[2020-09-23] VITALS (41 sets, daily range): BP systolic 127–157; BP diastolic 52–69; PULSE 81–100; RESP 18–33; TEMP 36.4–38.3; O2SAT 90–99; BMI 27.9
--- NOTE | ~2020-09-23 | XR_ITS ---
EXAMINATION: XR abdomen/kub 1V EXAM DATE: 09/24/2020 13:45 INDICATION: Left renal stone. TECHNIQUE: Frontal projection(s) of the abdomen for interpretation. Correlation is made to abdomen pe lvis CT earlier same date. FINDINGS: Approximately 7 mm left inferior calyceal stone identified. There is expected amount of co lonic stool and gas. No small bowel dilation, nonobstructive bowel gas pattern. There is splenomeg sherry. Pelvic surgical clips, prostatectomy. There are bony degenerative changes. IMPRESSION: Left nephrolithiasis. Splenomegaly. Reviewed, dictated and finalized at location A.
--- NOTE | ~2020-09-23 | US_ITS ---
EXAMINATION: US thyroid DATE: 09/23/2020 15:37 INDICATION: Right thyroid nodule TECHNIQUE: Multiple ultrasound images of the thyroid were obtained. COMPARISON: CT dated 09/23/2020 FINDINGS: The right thyroid lobe measures 4.2 x 2.4 x 2.0 cm. The left thyroid lobe measures 3.6 x 2.4 x 1.8 c m. Thyroid isthmus measures 7 mm in thickness. 1.7 cm wider than tall predominantly cystic TI RADS 1 nodule in the right thyroid lobe. There is normal echotexture, echogenicity and vascular flow through out the remainder of the thyroid gland. IMPRESSION: 1. 1.7 cm TI RADS 1 right thyroid nodule which requires in either biopsy nor further follow-up. Reviewed, dictated and finalized at location A. IMPRESSION: 1. 1.7 cm TI RADS 1 right thyroid nodule which requires in either biopsy nor fu rther follow-up.
--- NOTE | ~2020-09-23 | CT_ITS ---
EXAMINATION: CT abdomen pelvis wo/w con DATE: 09/24/2020 14:09 INDICATION: Microhematuria. TECHNIQUE: Computed tomography (CT) of the abdomen and pelvis was performed without and with intraven ous contrast using a total of 130 mL Omnipaque-350 intravenous contrast with a double-bolus technique for simultaneous opacification of the renal parenchyma and renal collecting system. Automated exposu re control and iterative reconstruction technique were employed. The dose-length product was 1724.94 mGy-cm. COMPARISON: CT abdomen 12/23/2019, CT abdomen and pelvis 03/13/2019 FINDINGS: The visualized portions of the lung bases demonstrate mild atelectasis. There is a trace left pleural effusion. The heart size is normal. There are coronary artery calcifications. No pericardial effusio n. Calcifications in the liver and spleen are consistent with old granulomatous disease. There is dif fuse hepatic steatosis. There is mild splenomegaly measuring 14.0 cm. The gallbladder is normal. Ther e are stable 17 mm and 14 mm cystic lesions in the pancreas, likely benign. The adrenal glands are no rmal. There are simple and hemorrhagic cysts in the kidneys measuring up to 2.9 cm on the right. Ther e is a 9 mm stone in left kidney lower pole. In the left kidney, there are ill-defined striations of decreased attenuation, consistent with pyelonephritis. Right ureter is not well opacified, but is nor mal. Left ureter is well opacified and is normal. The bladder is decompressed. There is gas in the bl adder lumen, likely from recent instrumentation. There are changes of prostatectomy. There is diverti culosis of the colon without evidence of diverticulitis. The appendix is not visualized. There are no pathologically enlarged lymph nodes. There is no free intraperitoneal fluid. Right innominate bone d emonstrates cortical and trabecular thickening, consistent with Paget disease. There is severe thorac olumbar spondylosis. IMPRESSION: 1. Left-sided pyelonephritis. 2. 9 mm nonobstructing left kidney stone. Reviewed, dictated and finalized at location A.
--- NOTE | ~2020-09-23 | CT_ITS ---
EXAMINATION: CT brain wo con DATE: 09/23/2020 09:27 INDICATION: Weakness. Unsteadiness. TECHNIQUE: Computed tomography (CT) of the head was performed without intravenous contrast. The dose- length product was 605.33 mGy-cm. The mA was adjusted according to patient size. Iterative reconstruc tion technique was employed. COMPARISON: CT dated 10/15/2014 FINDINGS: Generalized atrophy. There are scattered moderate periventricular and subcortical white mat ter changes, most likely related to small vessel ischemic disease (microangiopathy). No acute intracr anial hemorrhage, infarction, mass or mass effect. There is intracranial atherosclerosis. Paranasal s inuses and mastoids are pneumatized. No depressed skull fractures. IMPRESSION: 1. No acute intracranial abnormality. 2: Chronic age-related findings. Reviewed, dictated and finalized at location B.
--- NOTE | ~2020-09-23 | XR_ITS ---
EXAMINATION: XR chest 2V DATE: 09/23/2020 09:27 INDICATION: Weakness. TECHNIQUE: Frontal and lateral views of the chest were obtained. COMPARISON: Chest single view 09/01/2020, CT abdomen 12/23/2019 FINDINGS: There is chronic mild elevation of right hemidiaphragm. There is mild scarring at the lung apices. No pleural effusion or pneumothorax. The heart size is normal. IMPRESSION: 1. No acute cardiopulmonary disease. Reviewed, dictated and finalized at location A.
--- NOTE | ~2020-09-23 | US_ITS ---
EXAMINATION: US renal BI EXAM DATE: 09/27/2020 09:16 INDICATION: Left-sided pyelonephritis. TECHNIQUE: Multiple grayscale and Doppler images of the kidneys were obtained (by a technologist who performed the scan) and subsequently reviewed. There is no prior study for comparison. FINDINGS: Right kidney: There is normal contour and echogenicity. It measures 11.7 x 6.4 x 5.1 centimeters. Th ere is a renal cyst measuring 1.7 cm. There is no hydronephrosis. Left kidney: There is normal contour and echogenicity. It measures 13.3 x 5.5 x 7.2 centimeters. The re is left inferior calyceal stone measuring about 1.2 cm. There is no hydronephrosis. Bladder unremarkable. Both ureteral jets were confirmed. IMPRESSION: 1. Left nephrolithiasis. 2. No hydronephrosis. Reviewed, dictated and finalized at location B.
--- NOTE | ~2020-09-23 | CT_ITS ---
EXAMINATION: CTA chest PE protocol DATE: 09/23/2020 10:32 CDT INDICATION: Hypoxia. Shortness of breath. TECHNIQUE: Computed tomographic angiography (CTA) of the chest was performed with 100 mL Omnipaque-35 0 intravenous contrast. The dose-length product was 437.91 mGy-cm. Maximum intensity projection 3D-re constructions of the aorta and other arteries were constructed by the technologist on a separate work station. Automated exposure control and iterative reconstruction technique were employed. COMPARISON: CT dated 10/15/2014. FINDINGS: Study is technically limited without evidence for central pulmonary embolism. Evaluation of peripheral pulmonary arteries limited by contrast opacification and motion. No significant pleural o r pericardial effusion. Heart size normal. No thoracic lymphadenopathy. There is 1.8 cm hypodense mas s of the right thyroid gland. There are calcified granulomas of the liver and spleen. There is emphys jono. There is dependent atelectasis. No endobronchial lesions. 3 mm right upper lobe nodule, image 34 , likely benign. Calcified granulomas are present. No focal airspace consolidation. Elevated right di aphragm. IMPRESSION: 1. No large central pulmonary embolism. Limited evaluation of peripheral pulmonary arteries. 2: Emphysema. 3: Right upper lobe nodule measuring 3 mm, likely benign. Follow-up low dose CT chest in 12 months re commended. 4: Right thyroid nodule measuring 1.8 cm. Recommend correlation with ultrasound. Reviewed, dictated and finalized at location B. IMPRESSION: 1. No large central pulmonary embolism. Limited evaluation of peripheral pulmon kiara arteries. 2: Emphysema. 3: Right upper lobe nodule measuring 3 mm, likely benign. Follow-up low dose CT chest in 12 months recommended. 4: Right thyroid nodule measuring 1.8 cm. Recommend correlation with ultrasound .
--- NOTE | 2020-09-23 08:41 | ECG_ITS ---
Measurements Intervals [place] Rate: 95 P: 38 MS: 176 QRS: -15 QRSD: 110 T: 40 QT: 343 QTc: 433 Interpretive Statements SINUS RHYTHM INCOMPLETE RIGHT BUNDLE BRANCH BLOCK BASELINE ARTIFACT- II, III, AVR, AVF, V2-V6 BORDERLINE ECG Electronically Signed On 09-23-2020 9:08:13 CDT by Robinson Hansen D.O.
[2020-09-23 08:55] LABS: Alveolar/Arterial O2 Gradient 42.4 mmHg; Base Excess ABG 2.8 mEq/l (+/-2.0); Carboxyhemoglobin 1.2 % THb (0-2.0); Fractional Inspired Oxygen 21 %; Methemoglobin ABG 0.1 %THb (0-1.5); Oxygen Content ABG 15.6 %vol (16.0-22.0); Oxygen Saturation ABG 91.9 % (95.0-100.0); Oxyhemoglobin 89.9 % THb (90.0-100.0); PCO2 ABG 39.9 mmHg (35.0-45.0); PO2 ABG 59.6 mmHg (80.0-100.0); PO2 FiO2 Ratio Arterial Blood 2.84 %; Reduced Hemoglobin 8.8 %THb (0-5.0); Total Hemoglobin 12.3 g/dL (12.0-18.0); pH ABG 7.448 (7.350-7.450)
[2020-09-23 08:56] LABS: Device ROOM AIR; Modified Allen's Test Pass; Site Drawn RIGHT RADIAL
[2020-09-23] MEDS: LACTATED RINGERS 1,000 ML 999 ML IV CONT (09:02)
[2020-09-23] MEDS: ONDANSETRON INJ 4 MG/2 ML VIAL IV PUSH (09:02)
[2020-09-23 09:11] LABS: Basophils Percent Auto 0.1 % (0.2-1.2); Eosinophils Percent Auto 0.1 % (0-4.4); Hematocrit 35.9 % (42.0-52.0); Hemoglobin 11.5 g/dL (14.0-18.0); Immature Granulocyte Absolute 0.06 K/mm3 (0.00-0.031); Immature Granulocyte Percent A 0.5 % (0-0.5); Lymphocytes Percent Auto 3.8 % (18.3-44.2); Mean Corpuscular Hemoglobin 27.4 pg (26-34); Mean Corpuscular Volume 85.7 fl (80-100); Mean Platelet Volume 12.7 fl (7.4-10.4); Monocytes Absolute Auto 1.1 K/mm3 (0.1-0.6); Monocytes Percent Auto 7.9 % (2.6-8.5); Neutrophils Absolute Auto 11.6 K/mm3 (1.3-6.7); Neutrophils Percent Auto 87.6 % (45.5-73.1); Platelet Count Result 179 k/mm3 (150-375); Red Blood Count 4.19 M/mm3 (4.6-6.20); Red Cell Distribution Width 14.9 % (11.5-14.5); White Blood Count 13.2 K/mm3 (4.5-10.0)
[2020-09-23 09:25] LABS: Platelet Estimate Adequate (Adequate)
[2020-09-23 09:26] LABS: Anisocytosis 1+ (NORMAL); Ovalocytes 2+ (NORMAL)
[2020-09-23 09:27] LABS: INR 1.2; Prothrombin Time 15.4 Seconds (11.1-14.7)
--- NOTE | 2020-09-23 09:28 | ED.WEAKNESS ---
HPI - Weakness General Chief complaint: Weakness Stated complaint: weakness Time Seen by Provider: 09/23/20 08:26 Source: patient, family, RN notes reviewed and old records reviewed Mode of arrival: wheelchair History of Present Illness HPI Narrative: This is an 80 year old male with multiple medical problems who presents from home with concerned about weakness. She states he has been weak for several months. He was admitted to hospital 1 month ago for weakness, and he was treated for a UTI. She states he has been weak since he was discharged. She states this morning he was so weak she had to help him out of bed. She also states he was unsteady going to the bathroom today. She states he has been referred to cardiology and neurology but he has not had an appointment yet. She states he has shortness of breath with exertion so he is suppose to get a stress test as an outpatient. She reports difficulty in scheduling this test. Patient denies chest pain, nausea, vomiting, abdominal pain. Related Data Home Medications Medication Instructions Recorded Confirmed gabapentin 100 mg PO DAILY 09/01/20 09/23/20 guaifenesin [Mucinex] 600 mg PO DAILY PRN 09/01/20 09/23/20 polyethylene glycol 3350 [Miralax] 17 g PO HS 09/01/20 09/23/20 simvastatin 10 mg PO HS 09/01/20 09/23/20 Allergies Allergy/AdvReac Type Severity Reaction Status Date / Time No Known Allergies Allergy Verified 09/23/20 08:39 Review of Systems Review of Systems: All systems reviewed & are unremarkable except as noted in HPI and below PMFSH Past Medical History Medical History (Updated 09/23/20 @ 14:46 by Vira Mcpherson PA-C) Abnormal PFT (~02/2018) Obstructive ventilatory defect suggested with decreased FVC/SVC but timed flows are normal. Mildly decreased DLCO. Chest CT on 09/23/2020 showed emphysema. Benign paroxysmal positional vertigo Chronic anemia Essential hypertension Gastroesophageal reflux disease Hypercholesteremia Kidney stone Paget's disease of bone Pancreatic cyst Prostate cancer Status post radical prostatectomy in 2006. Small bowel obstruction (~04/2018) Type 2 diabetes mellitus Hemoglobin A1c was 6.2% on 09/02/2020. Surgical History Surgical History (Updated 09/23/20 @ 14:42 by Vira G. Gerling, PA-C) History of basal cell carcinoma (BCC) History of cardiac cath Reportedly normal History of colonoscopy with polypectomy (~05/2017) Internal hemorrhoids, and melanosis coli noted on colonoscopy performed by Dr. Alberto. Pathology consistent with tubulovillous adenoma History of esophagogastroduodenoscopy (EGD) (~06/2006) Demonstrated esophagitis History of exploratory laparotomy (~1965) History of lateral meniscus repair of right knee (~01/27/20) History of radical prostatectomy (~08/2006) History of tonsillectomy Status post cataract extraction of both eyes with insertion of intraocular lens Family History Family History Mother Diabetes mellitus Heart disease Sibling Diabetes mellitus Father Motor vehicle crash, injury Son Diabetes mellitus Social History Social History (Updated 09/23/20 @ 14:43 by Vira Mcpherson PA-C) Social History: The patient is and lives with his in [place]. He has been 3 times and has been with his current for approximately 26 years. He has a total of 10 children. 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 He has a remote history of smoking and quit 1968. Primary care physician: Dr. Ivan Bacon Code status: Full code Surrogate decision maker: Caprice () Smoking packs per day: 1 Smoking cigarettes per day: 20.0 Years smoked: 11 Smoking pack-years: 11.00 Smoking status: Former smoker Second hand tobacco smoke exposure: No Alcohol intake: never Substance use: never Substance use type: does not use Gender identity (if verbalized by the patient):
[2020-09-23 09:29] LABS: Partial Thromboplastin Time 28.4 SECONDS (22.3-36.8)
[2020-09-23 09:31] LABS: Alanine Aminotransferase 16 U/L (4-50); Albumin Level 4.3 g/dL (3.5-5.1); Alkaline Phosphatase 50 U/L (38-126); Anion Gap 4 mmol/L (8-16); Aspartate Amino Transferase 27 U/L (17-59); Bilirubin,Total 1.1 mg/dL (0.2-1.3); Blood Urea Nitrogen 25 mg/dL (9-20); Carbon Dioxide 30 mmol/L (22-30); Chloride 102 mmol/L (98-107); Estimated CRCL calculation 67 ml/min; Estimated Glomerular Filt Rate > 60; Glucose 187 mg/dL (75-110); Lipase 97 U/L (23-300); Potassium 4.4 mmol/L (3.4-5.0); Sodium 136 mmol/L (137-145)
[2020-09-23 09:43] LABS: NT Pro B Type Natriuretic Pept 149 pg/mL (5-100); Troponin I < 0.012 ng/mL (0.000-0.034)
[2020-09-23 09:52] LABS: Add Urine Microscopic? YES; Appearance Urine Cloudy (Clear); Bacteria Urine 4+ /hpf; Bilirubin Urine Negative (Negative); Blood Urine 1+ (Negative); Color Urine Yellow (Yellow); Glucose Urine UA Negative (Negative); Ketones Urine Negative (Negative); Leukocyte Esterase Ur 1+ LEU/UL (Negative); Mucus Urine Rare /lpf; Nitrate Urine Positive (Negative); Protein Urine 2+ mg/dL (Negative); RBC Urine 21-50 /hpf (0-2); Squamous Epithelial Cell Urine Rare /hpf (Few); WBC Urine 51-75 /hpf
--- NOTE | 2020-09-23 13:05 | PM.IMHP ---
H&P: HPI History of Present Illness Date/Time: 09/23/20 13:05 Chief Complaint: Generalized weakness. Narrative: This is an 80-year-old male with history of prostate cancer status post radical prostatectomy with history of UTI, type 2 diabetes mellitus, hypertension, and hyperlipidemia who presented to the emergency department earlier today via private vehicle from home for evaluation of generalized weakness. He is known to the hospitalist service and spent 2 days in the hospital at the beginning of this month for a Klebsiella pneumonia urinary tract infection, treated with ceftriaxone and cefdinir for a total of 10 days. He felt pretty good after discharge but unfortunately over the last couple of days he has just not been feeling well with progressive weakness. In fact this morning his had to help him get out of bed and she notes he was unsteady when ambulating to the bathroom, although that has been an ongoing issue for quite some time and in fact he has a neurology referral for further evaluation of that. In any event, he has no specific complaints aside from the generalized weakness and he specifically denies fever, chills, sweats, cold and flu symptoms, cough, nausea, vomiting, diarrhea, and dysuria. No chest pain, pleuritic pain, palpitations, or shortness of breath at this time although he does endorse dyspnea on exertion that has been ongoing for quite some time and in fact he has an upcoming stress test scheduled for evaluation of the same. No syncope or near syncope. Review of Systems Review of Systems: Narrative: Twelve systems were reviewed with pertinent positives and negatives as per HPI. He denies sinus congestion, rhinorrhea, otalgia, and odynophagia. No dysphagia or concerns for aspiration. No chest pain or pleuritic pain. He denies orthopnea, PND, and lower extremity edema. He has chronic issues with urinary incontinence since a radical prostatectomy and that is unchanged. No blurry vision, polydipsia, or polyuria. He does have peripheral neuropathy from his diabetes and his gait issues may be secondary to the same. No focal weakness or paresthesias. No history of CVA. Except as documented, all other systems were reviewed and are negative. [facility] Past Medical History Medical History Abnormal PFT (~02/2018) Obstructive ventilatory defect suggested with decreased FVC/SVC but timed flows are normal. Mildly decreased DLCO. Chest CT on 09/23/2020 showed emphysema. Benign paroxysmal positional vertigo Chronic anemia Essential hypertension Gastroesophageal reflux disease Hypercholesteremia Kidney stone Paget's disease of bone Pancreatic cyst Prostate cancer Status post radical prostatectomy in 2006. Small bowel obstruction (~04/2018) Type 2 diabetes mellitus Hemoglobin A1c was 6.2% on 09/02/2020. Surgical History Surgical History History of basal cell carcinoma (BCC) History of cardiac cath Reportedly normal History of colonoscopy with polypectomy (~05/2017) Internal hemorrhoids, and melanosis coli noted on colonoscopy performed by Dr. Alberto. Pathology consistent with tubulovillous adenoma History of esophagogastroduodenoscopy (EGD) (~06/2006) Demonstrated esophagitis History of exploratory laparotomy (~1965) History of lateral meniscus repair of right knee (~01/27/20) History of radical prostatectomy (~08/2006) History of tonsillectomy Status post cataract extraction of both eyes with insertion of intraocular lens Family History Family History Mother Diabetes mellitus Heart disease Sibling Diabetes mellitus Father Motor vehicle crash, injury Son Diabetes mellitus Social History Social History Social History: The patient is and lives with his w
[2020-09-23 14:13] LABS: Glucose Point of Care 126 (65-105)
--- NOTE | 2020-09-23 14:21 | ADMGEN ---
This patient, Bakari Weathers, was admitted to [facility] Surg Room 306-01. Patient/family oriented to hospital policies and general routines including ID bracelet, bed and alarms, visiting hours, pain management, procedures, bathroom and other care routines, personal items, smoking policy, room service/diet, and visiting hours. Information on how to activate the Rapid Response Team has been discussed. Patient/Family are encouraged to report perceived risks to care and to ask questions if they do not understand what they are told or what they should do.
[2020-09-23] MEDS: LACTATED RINGERS 1,000 ML 125 ML IV CONT (14:42)
--- NOTE | 2020-09-23 14:49 | ECHO_ITS ---
Patient Info Name: Bakari Weathers Age: 80 years : 1940 Gender: Male Ht: 71 in Wt: 200 lbs BSA: 2.15 m2 HR: 90 bpm BP: 153 / 61 mmHg Technical Quality: Good Exam Date: 09/23/2020 4:08 PM Exam Location: [facility] Exam Room: 306 Patient Status: Inpatient Admit Date: 09/23/2020 Staff Ordering Physician: Vira Mcpherson PA-C Retail Business Manager: Adrianne Downs RDCS Attending Provider: Cassandra Arcos MD Referring Physician: Vida LAYNE; Exam Type: CA echo doppler color flow Study Info Indications - htn R06.02 - Shortness of breath Complete two-dimensional, color flow and Doppler transthoracic echocardiogram is performed. Summary 1. Complete two-dimensional, color flow and Doppler transthoracic echocardiogram is performed. 2. Left ventricular chamber dimension is normal. 3. Left ventricular systolic function is normal, estimated at 60-65%. 4. There is mildly increased left ventricular wall thickness. 5. The left ventricular diastolic function is grade I diastolic dysfunction. 6. E/e' 8 is minimally elevated. 7. Left atrial chamber dimension is mildly enlarged. 8. Right atrial chamber dimension is mildly enlarged. 9. There is moderate aortic valve sclerosis. 10. The mitral valve has mildly calcified leaflets and mildly calcified annulus. 11. No pulmonary hypertension, estimated pulmonary arterial systolic pressure is 37 mmHg. 12. Dilated inferior vena cava with >50% collapse upon inspiration consistent with normal right atrial pressure, 10 mmHg. Left Ventricle E/e' 8 is minimally elevated. Left ventricular chamber dimension is normal. Left ventricular systolic function is normal, estimated at 60-65%. There is mildly increased left ventricular wall thickness. The left ventricular diastolic function is grade I diastolic dysfunction. Right Ventricle Right ventricular chamber dimension is normal. Right ventricular systolic function is normal. Left Atria Left atrial chamber dimension is mildly enlarged. Right Atria Right atrial chamber dimension is mildly enlarged. Aortic Valve The aortic valve is not well visualized. There is moderate aortic valve sclerosis. There is no aortic valve stenosis. There is no aortic valve regurgitation. Pulmonic Valve There is no pulmonic regurgitation. Mitral Valve The mitral valve has mildly calcified leaflets and mildly calcified annulus. There is no mitral valve stenosis. There is no mitral valve regurgitation. Tricuspid Valve There is no tricuspid valve regurgitation. No pulmonary hypertension, estimated pulmonary arterial systolic pressure is 37 mmHg. Pericardium/Pleural There is no pericardial effusion. Inferior Vena Cava Dilated inferior vena cava with >50% collapse upon inspiration consistent with normal right atrial pressure, 10 mmHg. Aorta The aortic root size at the sinus of Valsalva is normal. Left Ventricular Outflow Tract Name Value Normal LVOT 2D LVOT Diameter 2.1 cm LVOT Doppler LVOT Peak Gradient 7 mmHg LVOT Mean Gradient 5 mmHg LVOT VTI
--- NOTE | 2020-09-23 15:41 | PC.NURSE ---
Care from 0700 to 1530 today was provided by Alicia Leija RN but charted by mistake under Maribel Allen RN.
[2020-09-23 16:55] LABS: Glucose Point of Care 156 (65-105)
[2020-09-23] MEDS: PANTOPRAZOLE 40 MG TABLET PO (20:20)
[2020-09-23] MEDS: AZELASTINE HCL NASAL 0.1% 137 MCG/SPR 30 ML BTL 2 SPRAY NASAL (20:20)
[2020-09-23] MEDS: SIMVASTATIN 10 MG TABLET PO (20:20)
[2020-09-23 20:22] LABS: Iron 12 ug/dL (49-181)
[2020-09-23] MEDS: polyethylene glycoL 3350 17 GM POWD.PACK PO (20:29)
[2020-09-23 20:32] LABS: Percent Iron Saturation 5 % (20-50)
[2020-09-23 21:01] LABS: Glucose Point of Care 125 (65-105)
[2020-09-23 21:32] LABS: Folic Acid 16.4 ng/mL (2.76->20); Vitamin B12 > 1000.0 pg/mL (239-931)
[2020-09-23 21:36] LABS: Free T4 Free Thyroxine Reflex 0.74 ng/dL (0.78-2.19)
[2020-09-24] VITALS (14 sets, daily range): BP systolic 91–118; BP diastolic 40–52; PULSE 82–95; RESP 18–28; TEMP 36.3–39.3; O2SAT 90–100
[2020-09-24] MEDS: LACTATED RINGERS 1,000 ML 125 ML IV CONT (00:01)
[2020-09-24 06:19] LABS: Basophils Percent Auto 0.1 % (0.2-1.2); Hematocrit 30.8 % (42.0-52.0); Hemoglobin 10.1 g/dL (14.0-18.0); Immature Granulocyte Absolute 0.12 K/mm3 (0.00-0.031); Immature Granulocyte Percent A 0.9 % (0-0.5); Lymphocytes Absolute Auto 0.74 K/mm3 (0.9-3.2); Lymphocytes Percent Auto 5.3 % (18.3-44.2); Mean Corpuscular HGB Conc 32.8 g/dl (32-36); Mean Corpuscular Hemoglobin 27.6 pg (26-34); Mean Corpuscular Volume 84.2 fl (80-100); Mean Platelet Volume 12.6 fl (7.4-10.4); Monocytes Absolute Auto 1.3 K/mm3 (0.1-0.6); Monocytes Percent Auto 9.1 % (2.6-8.5); Neutrophils Absolute Auto 11.9 K/mm3 (1.3-6.7); Neutrophils Percent Auto 84.6 % (45.5-73.1); Platelet Count Result 166 k/mm3 (150-375); Red Blood Count 3.66 M/mm3 (4.6-6.20); Red Cell Distribution Width 14.9 % (11.5-14.5); White Blood Count 14.1 K/mm3 (4.5-10.0)
[2020-09-24 06:35] LABS: Alanine Aminotransferase 17 U/L (4-50); Albumin Level 3.7 g/dL (3.5-5.1); Alkaline Phosphatase 47 U/L (38-126); Anion Gap 3 mmol/L (8-16); Aspartate Amino Transferase 27 U/L (17-59); Bilirubin,Total 1.2 mg/dL (0.2-1.3); Blood Urea Nitrogen 19 mg/dL (9-20); Calcium 8.2 mg/dL (8.4-10.2); Carbon Dioxide 31 mmol/L (22-30); Chloride 100 mmol/L (98-107); Estimated CRCL calculation 60 ml/min; Estimated Glomerular Filt Rate > 60; Glucose 139 mg/dL (75-110); Magnesium 1.7 mg/dL (1.6-2.3); Potassium 4.1 mmol/L (3.4-5.0); Sodium 134 mmol/L (137-145)
[2020-09-24 06:49] LABS: Ovalocytes 1+ (NORMAL); Platelet Estimate Adequate (Adequate)
[2020-09-24 07:45] LABS: Glucose Point of Care 125 (65-105)
[2020-09-24] MEDS: AZELASTINE HCL NASAL 0.1% 137 MCG/SPR 30 ML BTL 2 SPRAY NASAL ×2 (08:31→20:36)
[2020-09-24] MEDS: GABAPENTIN 100 MG CAPSULE PO (08:32)
[2020-09-24] MEDS: lisinopriL 20 MG TABLET 40 MG PO (08:33)
[2020-09-24] MEDS: PANTOPRAZOLE 40 MG TABLET PO ×2 (08:33→20:37)
[2020-09-24] MEDS: VERAPAMIL HCL 180 MG TABLET ER BY MOUTH (08:33)
[2020-09-24 11:58] LABS: Glucose Point of Care 116 (65-105)
--- NOTE | 2020-09-24 12:01 | WPDURCON ---
Assessment and Plan Assessment and plan (1) UTI due to Klebsiella species: Code(s): N39.0 - Urinary tract infection, site not specified; B96.89 - Other specified bacterial agents as the cause of diseases classified elsewhere Status: Acute Assessment and Plan: Repeat Culture pending, continue Ceftriaxone until culture results. Tailor antibiotics to culture results. (2) History of prostate cancer: Code(s): Z85.46 - Personal history of malignant neoplasm of prostate Status: Acute (3) Mixed incontinence: Code(s): N39.46 - Mixed incontinence Status: Acute Assessment and Plan: We discussed using Myrbetriq 25mg, if his CT doesn't show retention. He understands the Myrbetriq will not improve stress incontinence. Stress incontinence is secondary to previous prostatectomy. (4) Microhematuria: Code(s): R31.29 - Other microscopic hematuria Status: Acute Assessment and Plan: Obtain CT to rule out a source for peristent UTI. (5) Renal calculus, left: Code(s): N20.0 - Calculus of kidney Status: Acute Assessment and Plan: 6mm non obstructive seen on CT from 11/2019. No intervention at this time unless it is obstructive on today's repeat CT scan. Will re-assess. Urology Consult Note HPI Date Seen: 09/24/20 Requesting Physician: Cassandra Arcos MD Primary Care Provider: Ivan Bacon DO Consult Narrative Narrative: Bakari Weathers is a 80 year old male who presented to the ER yesterday for continued weakness following a UTI that was diagnosed during his most recent hospital encounter at the beginning of the month on 09/01/2020. His urine culture at that time grew Klebsiella and he was treated with IV antibiotics, but felt better until a few days ago when the weakness came back. He has a history of prostate cancer and had a prostatectomy in 08/[address] Holman. He denies hematuria, dysuria or flank pain. He does note worsening frequency and urgency as well as worsening incontinence. He normally urinates q 1-2 hours and once at night without infection and suffers from mixed incontinence since his prostatectomy. He wears 1-2 depends daily. He denies a previous history of chronic UTI's and states this is more recent. He was discharged from our practice years ago because his PSA's remained undetectable. His WBC is 14.1, UA is nitrate positive, creatinine is 0.90 and a urine/blood cultures are pending. He is currently on Ceftriaxone. A CT was done in 11/2019, showing a left 6mm renal stone. No new imaging has been done. Review of Systems Cardiovascular: Cardiovascular: Denies chest pain Respiratory: Respiratory: Reports no additional respiratory complaints Gastrointestinal: Gastrointestinal: Denies abdominal pain, Denies nausea and Denies vomiting Genitourinary: Genitourinary: Denies hematuria, Denies dysuria, Denies flank pain, Denies testicular pain, Reports urinary frequency, Denies urinary hesitancy, Reports urinary incontinence and Denies urinary urgency [facility] Past Medical History Medical History Abnormal PFT (~02/2018) Obstructive ventilatory defect suggested with decreased FVC/SVC but timed flows are normal. Mildly decreased DLCO. Chest CT on 09/23/2020 showed emphysema. Benign paroxysmal positional vertigo Chronic anemia Essential hypertension Gastroesophageal reflux disease Hypercholesteremia Kidney stone Paget's disease of bone Pancreatic cyst Prostate cancer Status post radical prostatectomy in 2006. Small bowel obstruction (~04/2018) Type 2 diabetes mellitus Hemoglobin A1c was 6.2% on 09/02/2020. Surgical History Surgical History History of basal cell carcinoma (BCC) History of cardiac cath Reportedly normal History of colonoscopy with polypectomy (~05/2017) Internal hemorrhoids, and melanosis coli noted on colonoscopy perfo
--- NOTE | 2020-09-24 13:51 | PM.IMPN ---
Progress Note: A&P Assessment and Plan (1) Generalized weakness: Code(s): R53.1 - Weakness Status: Acute Assessment and Plan: Likely due to active UTI infection and deconditioning since his hospital stay -echo shows an EF of 60% with grade 1 diastolic dysfunction with no pulmonary hypertension -with that being said, it sounds like the patient is always tired . Will order apnea link -white blood cell count elevated 14,000, await blood cultures -encourage the patient to follow-up for his outpatient stress test -CT of the abdomen pelvis is pending read but MRI of the abdomen shows 3 cystic lesions on the pancreas which are stable since 2018. -folate, B12, liver enzymes and TSH normal. Will order phosphate tomorrow morning -continue PT and OT -consider MRI of the brain if patient does not improve with current treatment (2) Urinary tract infection: Qualifiers: Hematuria presence: with hematuria Urinary tract infection type: site unspecified Qualified Code(s): N39.0 - Urinary tract infection, site not specified; R31.9 - Hematuria, unspecified Code(s): N39.0 - Urinary tract infection, site not specified Status: Acute Assessment and Plan: Continue ceftriaxone, await cultures -urology consulted (3) Right thyroid nodule: Code(s): E04.1 - Nontoxic single thyroid nodule Status: Acute Assessment and Plan: Ultrasound without significant abnormality -no further follow-up warranted (4) Right upper lobe pulmonary nodule: Code(s): R91.1 - Solitary pulmonary nodule Status: Acute Assessment and Plan: Low-dose chest CT in 12 months recommended for follow-up of a 3 mm right upper lobe nodule (5) Hypoxemia: Code(s): R09.02 - Hypoxemia Status: Acute Assessment and Plan: Resolved (6) Chronic anemia: Code(s): D64.9 - Anemia, unspecified Status: Acute Assessment and Plan: Last hemoglobin 10.1 -B12 and folate normal -no signs of blood loss (7) Type 2 diabetes mellitus: Code(s): E11.9 - Type 2 diabetes mellitus without complications Status: Acute Assessment and Plan: Last glucose 116 -continue sliding scale insulin -Recent hemoglobin A1c 08/2020 was 6.2%. -metformin on hold (8) Essential hypertension: Code(s): I10 - Essential (primary) hypertension Status: Chronic Assessment and Plan: Last blood pressure 118/52 -continue lisinopril and verapamil Time Spent With Patient Time with patient: 25 - 35 minutes Subjective Date/time seen: 09/24/20 13:51 Interval history: Pt is a 80-year-old male here for UTI and weakness. Patient was seen today with at bedside. The patient states he has been feeling weak for the last couple days. He states he was hospitalized a few weeks ago and initially did better and was doing well but then started to decline in the last few days. The at bedside states that the patient is always tired at baseline but the weakness is making this worse. The patient states weakness feels like he is weak all over. It takes a lot of energy for him to stand and walk. He has no focal weaknesses in the UE or LE. No problems with speech or swallowing. He mostly wants to lay in bed. He has no lightheadedness, dizziness or chest pain when doing so. The patient's is unsure if he has ever been tested for sleep apnea and is unsure if she has noticed him reading irregularly. He has no CP but is in the process of getting a stress test outpt because of his weakness. Review of Systems Review of Systems: All systems reviewed & are unremarkable except as noted in HPI and below Exam Narrative: Exam Narrative: General: Well developed well nourished patient in NAD HEENT: normocephalic Neck: supple Neuro: Alert and oriented x4.CN 2-12 intact. Equal strength upper lower extremities 5/5. Able to do [id number]
[2020-09-24] MEDS: ACETAMINOPHEN 325 MG TABLET 650 MG PO ×2 (14:58→23:48)
[2020-09-24 18:25] LABS: Glucose Point of Care 116 (65-105)
[2020-09-24] MEDS: polyethylene glycoL 3350 17 GM POWD.PACK PO (20:37)
[2020-09-24] MEDS: SIMVASTATIN 10 MG TABLET PO (20:37)
[2020-09-25] VITALS (7 sets, daily range): BP systolic 98–131; BP diastolic 51–65; PULSE 79–92; RESP 18–20; TEMP 36.9–38.1; O2SAT 92–95
[2020-09-25 06:23] LABS: Hematocrit 30.4 % (42.0-52.0); Hemoglobin 9.7 g/dL (14.0-18.0); Mean Corpuscular HGB Conc 31.9 g/dl (32-36); Mean Corpuscular Volume 84.7 fl (80-100); Mean Platelet Volume 12.3 fl (7.4-10.4); Platelet Count Result 155 k/mm3 (150-375); Red Blood Count 3.59 M/mm3 (4.6-6.20); Red Cell Distribution Width 15.2 % (11.5-14.5); White Blood Count 9.9 K/mm3 (4.5-10.0)
[2020-09-25 06:30] LABS: Anion Gap 3 mmol/L (8-16); Blood Urea Nitrogen 29 mg/dL (9-20); Calcium 8.2 mg/dL (8.4-10.2); Carbon Dioxide 31 mmol/L (22-30); Chloride 98 mmol/L (98-107); Estimated CRCL calculation 50 ml/min; Estimated Glomerular Filt Rate > 60; Glucose 106 mg/dL (75-110); Phosphorus 3.6 mg/dL (2.5-4.5); Potassium 4.1 mmol/L (3.4-5.0); Sodium 132 mmol/L (137-145)
[2020-09-25 07:46] LABS: Glucose Point of Care 93 (65-105)
[2020-09-25] MEDS: lisinopriL 20 MG TABLET 40 MG PO (09:01)
[2020-09-25] MEDS: GABAPENTIN 100 MG CAPSULE PO (09:02)
[2020-09-25] MEDS: PANTOPRAZOLE 40 MG TABLET PO ×2 (09:02→20:23)
[2020-09-25] MEDS: AZELASTINE HCL NASAL 0.1% 137 MCG/SPR 30 ML BTL 2 SPRAY NASAL ×2 (09:02→20:23)
[2020-09-25] MEDS: VERAPAMIL HCL 180 MG TABLET ER BY MOUTH (09:02)
--- NOTE | 2020-09-25 11:23 | PM.IMPN ---
Progress Note: A&P Assessment and Plan (1) Generalized weakness: Code(s): R53.1 - Weakness Status: Acute Assessment and Plan: Likely due to active UTI infection and deconditioning since his hospital stay -echo shows an EF of 60% with grade 1 diastolic dysfunction with no pulmonary hypertension -with that being said, it sounds like the patient is always tired . Apnea link is positive, will need outpatient sleep study -white blood cell count improving with treatment -encourage the patient to follow-up for his outpatient stress test -CT of the abdomen pelvis shows pyelonephritis which is consistent with his UTI and symptoms -folate, B12, liver enzymes, phosphorus and TSH normal. -continue PT and OT (2) Urinary tract infection: Qualifiers: Hematuria presence: with hematuria Urinary tract infection type: site unspecified Qualified Code(s): N39.0 - Urinary tract infection, site not specified; R31.9 - Hematuria, unspecified Code(s): N39.0 - Urinary tract infection, site not specified Status: Acute Assessment and Plan: Continue ceftriaxone, Klebsiella growing in the urine culture -urology consulted (3) Right thyroid nodule: Code(s): E04.1 - Nontoxic single thyroid nodule Status: Acute Assessment and Plan: Ultrasound without significant abnormality -no further follow-up warranted (4) Right upper lobe pulmonary nodule: Code(s): R91.1 - Solitary pulmonary nodule Status: Acute Assessment and Plan: Low-dose chest CT in 12 months recommended for follow-up of a 3 mm right upper lobe nodule (5) Hypoxemia: Code(s): R09.02 - Hypoxemia Status: Acute Assessment and Plan: Resolved (6) Chronic anemia: Code(s): D64.9 - Anemia, unspecified Status: Acute Assessment and Plan: Last hemoglobin 9.7 -B12 and folate normal -no signs of blood loss (7) Type 2 diabetes mellitus: Code(s): E11.9 - Type 2 diabetes mellitus without complications Status: Acute Assessment and Plan: Last glucose 118 -continue sliding scale insulin -Recent hemoglobin A1c 08/2020 was 6.2%. -metformin on hold (8) Essential hypertension: Code(s): I10 - Essential (primary) hypertension Status: Chronic Assessment and Plan: Last blood pressure 104/51 -patient has been having some low blood pressures -continue lisinopril and verapamil but with parameters (9) Pyelonephritis: Code(s): N12 - Tubulo-interstitial nephritis, not specified as acute or chronic Status: Acute Assessment and Plan: as above Subjective Date/time seen: 09/25/20 11:23 Interval history: Pt is a 80-year-old male here for UTI and weakness. Patient was seen today with at bedside. Patient states he is doing a tad better than yesterday. He has been able to stand up and get into the chair and going to the bathroom. He feels weak but stronger than he has been. He still has occasional chills but denies chest pain, shortness of breath, fevers, nausea, vomiting or dysuria. He is eating and drinking okay. He has been having diarrhea but just has had 1 episode today. I spoke with the patient and his extensively about the diagnosis and plan of care. He understands he needs to be out of bed 3 times a day with meals. Exam Narrative: Exam Narrative: General: Well developed well nourished patient in NAD HEENT: normocephalic Neck: supple Neuro: Alert and oriented x4.CN 2-12 intact. Equal strength upper lower extremities 5/5. Able to do [id number] and rapid alternating movements. Able to do heel to dorsey. CV:RRR Resp:CTA Abd: Soft, non distended. No pain to palpation. Positive bowel sounds. Previous well-healing surgical scars Extremities: No swelling, erythema, or pain to palpation. Objective Data Vital Signs Vital Signs: Vital Signs - 24 hr 09/24/20
[2020-09-25 11:40] LABS: Glucose Point of Care 118 (65-105)
[2020-09-25] MEDS: ACETAMINOPHEN 325 MG TABLET 650 MG PO (14:40)
[2020-09-25 15:48] LABS: Glucose Point of Care 147 (65-105)
[2020-09-25] MEDS: SIMVASTATIN 10 MG TABLET PO (20:23)
[2020-09-26] VITALS (10 sets, daily range): BP systolic 104–134; BP diastolic 53–97; PULSE 75–105; RESP 18–20; TEMP 36.7–37.5; O2SAT 94–97
[2020-09-26 05:53] LABS: Hematocrit 29.6 % (42.0-52.0); Hemoglobin 9.6 g/dL (14.0-18.0); Mean Corpuscular HGB Conc 32.4 g/dl (32-36); Mean Corpuscular Volume 83.1 fl (80-100); Mean Platelet Volume 12.9 fl (7.4-10.4); Platelet Count Result 168 k/mm3 (150-375); Red Blood Count 3.56 M/mm3 (4.6-6.20); Red Cell Distribution Width 14.9 % (11.5-14.5); White Blood Count 8.8 K/mm3 (4.5-10.0)
[2020-09-26 06:38] LABS: Anion Gap 4 mmol/L (8-16); Blood Urea Nitrogen 23 mg/dL (9-20); Calcium 8.3 mg/dL (8.4-10.2); Carbon Dioxide 30 mmol/L (22-30); Chloride 100 mmol/L (98-107); Estimated CRCL calculation 60 ml/min; Estimated Glomerular Filt Rate > 60; Glucose 126 mg/dL (75-110); Potassium 4.4 mmol/L (3.4-5.0); Sodium 134 mmol/L (137-145)
[2020-09-26 07:31] LABS: Glucose Point of Care 126 (65-105)
[2020-09-26] MEDS: AZELASTINE HCL NASAL 0.1% 137 MCG/SPR 30 ML BTL 2 SPRAY NASAL ×2 (08:17→22:10)
[2020-09-26] MEDS: lisinopriL 20 MG TABLET 40 MG PO (08:18)
[2020-09-26] MEDS: GABAPENTIN 100 MG CAPSULE PO (08:18)
[2020-09-26] MEDS: VERAPAMIL HCL 180 MG TABLET ER BY MOUTH (08:18)
[2020-09-26] MEDS: PANTOPRAZOLE 40 MG TABLET PO ×2 (08:18→22:13)
[2020-09-26] MEDS: guaiFENesin 12 HR 600 MG TABCR PO (10:01)
[2020-09-26 11:20] LABS: Glucose Point of Care 157 (65-105)
--- NOTE | 2020-09-26 12:08 | PM.IMPN ---
Progress Note: A&P Assessment and Plan (1) Generalized weakness: Code(s): R53.1 - Weakness Status: Acute Assessment and Plan: Likely due to active UTI infection and deconditioning that is rapidly improving since admission -echo shows an EF of 60% with grade 1 diastolic dysfunction with no pulmonary hypertension -with that being said, it sounds like the patient is always tired . Apnea link is positive, will need outpatient sleep study -He also has a distant hx of PMR. Explained to the that this should be assessed after his acute illness and not during an active UTI and if he still has problems to f/u with pcp. His weakness is much better and PMR seems less likely. -white blood cell count improving with treatment -encourage the patient to follow-up for his outpatient stress test -CT of the abdomen pelvis shows pyelonephritis which is consistent with his UTI and symptoms -folate, B12, liver enzymes, phosphorus and TSH normal. -continue PT and OT -likely home tomorrow with outpt PT/OT (2) Urinary tract infection: Qualifiers: Hematuria presence: with hematuria Urinary tract infection type: site unspecified Qualified Code(s): N39.0 - Urinary tract infection, site not specified; R31.9 - Hematuria, unspecified Code(s): N39.0 - Urinary tract infection, site not specified Status: Acute Assessment and Plan: Continue ceftriaxone, Klebsiella growing in the urine culture -urology consulted (3) Right thyroid nodule: Code(s): E04.1 - Nontoxic single thyroid nodule Status: Acute Assessment and Plan: Ultrasound without significant abnormality -no further follow-up warranted (4) Right upper lobe pulmonary nodule: Code(s): R91.1 - Solitary pulmonary nodule Status: Acute Assessment and Plan: Low-dose chest CT in 12 months recommended for follow-up of a 3 mm right upper lobe nodule (5) Hypoxemia: Code(s): R09.02 - Hypoxemia Status: Acute Assessment and Plan: Resolved (6) Chronic anemia: Code(s): D64.9 - Anemia, unspecified Status: Acute Assessment and Plan: Last hemoglobin 9.6 -B12 and folate normal -no signs of blood loss (7) Type 2 diabetes mellitus: Code(s): E11.9 - Type 2 diabetes mellitus without complications Status: Acute Assessment and Plan: Last glucose 157 -continue sliding scale insulin -Recent hemoglobin A1c 08/2020 was 6.2%. -metformin on hold (8) Essential hypertension: Code(s): I10 - Essential (primary) hypertension Status: Chronic Assessment and Plan: Last blood pressure 126/59 -patient has been having some low blood pressures earlier in the stay -continue lisinopril and verapamil but with parameters (9) Pyelonephritis: Code(s): N12 - Tubulo-interstitial nephritis, not specified as acute or chronic Status: Acute Assessment and Plan: as above Subjective Date/time seen: 09/26/20 12:08 Interval history: Pt is a 80-year-old male here for UTI and weakness. Patient was seen today with at bedside. During exam, the patient had use the bathroom and was able to get out of bed by himself and walk with a walker to the bathroom. He did not appear that he was actually even using a walker for stability and was just simply pushing at around. The patient's said he usually walks without a walker and does fine. Prior to admission the patient explained that his legs feel weak and would give out. Today he said he walked down the flores and did not have any feeling of weakness. He denies CP, SOB, nausea, vomiting, or diarrhea. He is eating and drinking well. Exam Narrative: Exam Narrative: General: Well developed well nourished patient in NAD HEENT: normocephalic Neck: supple Neuro: Alert and oriented x4. CV:RRR Resp:CTA Abd: Soft, non distended. No pain to palpation. Positive
[2020-09-26] MEDS: ACETAMINOPHEN 325 MG TABLET 650 MG PO (14:24)
[2020-09-26 16:09] LABS: Glucose Point of Care 121 (65-105)
[2020-09-26] MEDS: SIMVASTATIN 10 MG TABLET PO (22:12)
[2020-09-27 06:00] VITALS: BP 142/71; PULSE 86; RESP 20; TEMP 37.3; O2SAT 96
[2020-09-27 06:34] LABS: Basophils Percent Auto 0.5 % (0.2-1.2); Eosinophils Percent Auto 0.1 % (0-4.4); Hematocrit 32.6 % (42.0-52.0); Hemoglobin 10.2 g/dL (14.0-18.0); Immature Granulocyte Absolute 0.12 K/mm3 (0.00-0.031); Immature Granulocyte Percent A 1.6 % (0-0.5); Lymphocytes Absolute Auto 0.59 K/mm3 (0.9-3.2); Lymphocytes Percent Auto 7.7 % (18.3-44.2); Mean Corpuscular HGB Conc 31.3 g/dl (32-36); Mean Corpuscular Hemoglobin 27.1 pg (26-34); Mean Corpuscular Volume 86.7 fl (80-100); Mean Platelet Volume 12.9 fl (7.4-10.4); Monocytes Absolute Auto 0.6 K/mm3 (0.1-0.6); Monocytes Percent Auto 7.6 % (2.6-8.5); Neutrophils Absolute Auto 6.3 K/mm3 (1.3-6.7); Neutrophils Percent Auto 82.5 % (45.5-73.1); Platelet Count Result 181 k/mm3 (150-375); Red Blood Count 3.76 M/mm3 (4.6-6.20); White Blood Count 7.6 K/mm3 (4.5-10.0)
[2020-09-27 06:43] LABS: Potassium 4.2 mmol/L (3.4-5.0)
[2020-09-27 06:53] LABS: Anion Gap 3 mmol/L (8-16); Blood Urea Nitrogen 17 mg/dL (9-20); Calcium 8.4 mg/dL (8.4-10.2); Carbon Dioxide 31 mmol/L (22-30); Chloride 100 mmol/L (98-107); Estimated CRCL calculation 67 ml/min; Estimated Glomerular Filt Rate > 60; Glucose 120 mg/dL (75-110); Sodium 134 mmol/L (137-145)
--- NOTE | 2020-09-27 08:56 | WPDUROPN2 ---
Progress Note: A&P Assessment and Plan (1) Mixed incontinence: Code(s): N39.46 - Mixed incontinence Status: Acute Assessment and Plan: Start Myrbetriq 25mg, patient is aware that this could raise his BP, to monitor it and if it increases to 180/80, he must stop the medication. It may also take 2-3 weeks to be effective. He is also aware that this will not help his stress incontinence, only urgency, frequency and urge incontinence. I left a message on the home phone for his , as she has some questions regarding his care. She may call the office, otherwise we can discuss questions at follow up visit. (2) Renal calculus, left: Code(s): N20.0 - Calculus of kidney Status: Acute Assessment and Plan: 9mm stone inthe left kidney, visible on KUB. We discussed seeing Dr. Holman as a follow up in the office to schedule a Left ESWL. Potentially contributing to his recurrent UTI's. (3) Pyelonephritis: Code(s): N12 - Tubulo-interstitial nephritis, not specified as acute or chronic Status: Acute Assessment and Plan: His culture grew Klebsiella again from 09/23/2020, which is sensitive to Rocephin. Continue IV antibiotics. Get ARUNA to ensure pyelonephritis is resolving. (4) History of prostate cancer: Code(s): Z85.46 - Personal history of malignant neoplasm of prostate Status: Acute Assessment and Plan: causing secondary stress incontinence (5) Microhematuria: Code(s): R31.29 - Other microscopic hematuria Status: Acute Assessment and Plan: Secondary to pyelonephritis, should resolve on it's own. No further evaluation at this time. CT shows normal upper tracts. Subjective Subjective Date/Time Seen: 09/27/20 08:56 Patient doing better, he denies flank pain, dysuria or hematuria at this time. He is being treated with Ceftriaxone for left pyelonephritis, with a known non obstructive 9mm left renal stone. WBC is 7.6 and creatinine remains stable at 0.80. He is afebrile. We discussed last week trying Myrbetriq for his urgency, frequency and urge incontinence, he would like to proceed with that plan. He has failed Oxybutynin in the past. Review of Systems Cardiovascular: Cardiovascular: Denies chest pain Respiratory: Respiratory: Reports no additional respiratory complaints Gastrointestinal: Gastrointestinal: Denies abdominal pain, Denies nausea and Denies vomiting Genitourinary: Genitourinary: Denies hematuria, Denies dysuria, Denies flank pain, Reports urinary incontinence and Reports urinary urgency Exam Resp: Effort & Inspection: normal respiratory effort Cardio: Rate: regular rate GI: GI Palp: Yes Soft to palpation and No Tenderness to palpation present (GI) : General: Yes no CVA tenderness Extrem: General: no edema Objective Data Vital Signs Vital Signs: Vital Signs - 24 hr 09/26/20 14:00 09/26/20 14:24 09/26/20 15:09 Temperature 99.5 F 99.5 F 98.1 F Pulse Rate 84 Respiratory Rate 20 Blood Pressure 110/53 L Pulse Oximetry 95 09/26/20 20:00 09/26/20 20:10 09/26/20 20:15 Temperature 98.1 F Pulse Rate 80 83 88 Respiratory Rate 18 Blood Pressure 134/70 123/61 134/61 Pulse Oximetry 94 96 97 09/26/20 21:56 09/27/20 06:00 Temperature 98.1 F 99.2 F Pulse Rate 80 86 Respiratory Rate 18 20 Blood Pressure 134/70 142/71 H Pulse Oximetry 96 96 Intake/Output Intake/Output: Intake & Output 09/24/20 09/25/20 09/26/20 09/27/20 23:59 23:59 23:59 23:59 Intake Total 2230 1700 1550 750 Output Total 450 650 Balance 1780 1050 1550 750 Meds/Results Medications: Active Medications Generic Name Dose Route Start Last Admin Trade Name Emmanuelq PRN Reason Stop Dose Admin Acetaminophen 650 mg 09/24/20 14:31 09/26/20 14:24 Acetaminophen 325 Mg Tablet PO 650 mg Q6H PRN Administration Mild Pain (1-3) or Fever Azelastine HCl 2 spray 09/23/20 21:00 09/26/20 22:10 Azelastine H
--- NOTE | 2020-09-27 08:58 | PC.NURSE ---
to ultrasound per stretcher
[2020-09-27] MEDS: AZELASTINE HCL NASAL 0.1% 137 MCG/SPR 30 ML BTL 2 SPRAY NASAL (09:24)
[2020-09-27] MEDS: lisinopriL 20 MG TABLET 40 MG PO (09:26)
[2020-09-27] MEDS: VERAPAMIL HCL 180 MG TABLET ER BY MOUTH (09:26)
[2020-09-27] MEDS: PANTOPRAZOLE 40 MG TABLET PO (09:26)
[2020-09-27] MEDS: guaiFENesin 12 HR 600 MG TABCR PO (09:26)
[2020-09-27] MEDS: GABAPENTIN 100 MG CAPSULE PO (09:26)
[2020-09-27] MEDS: MIRABEGRON 25 MG ER TABLET PO (10:54)
--- NOTE | 2020-09-27 13:14 | PM.DS ---
DS: Admitting Diagnosis Admitting Diagnosis Admitting Diagnosis: UTI DS: Discharge Diagnosis Discharge Diagnosis (1) Generalized weakness: Code(s): R53.1 - Weakness Status: Acute Assessment and Plan: Resolved, presumed due to UTI infection -echo shows an EF of 60% with grade 1 diastolic dysfunction with no pulmonary hypertension -with that being said, it sounds like the patient is always tired . Apnea link is positive, will need outpatient sleep study -He also has a distant hx of PMR. Explained to the that this should be assessed after his acute illness and not during an active UTI and if he still has problems to f/u with pcp. His weakness is much better and PMR seems less likely. -white blood cell count WNL after treating UTI -Blood cultures show no growth to date -encourage the patient to follow-up for his outpatient stress test -folate, B12, liver enzymes, phosphorus and TSH normal. -continue PT and OT outpt; order given (2) Urinary tract infection: Qualifiers: Hematuria presence: with hematuria Urinary tract infection type: site unspecified Qualified Code(s): N39.0 - Urinary tract infection, site not specified; R31.9 - Hematuria, unspecified Code(s): N39.0 - Urinary tract infection, site not specified Status: Acute Assessment and Plan: Continue ceftriaxone, Klebsiella growing in the urine culture -CT showed pyelonephritis on admission -u/s day of d/c shows no hydronephrosis with normal kidneys bilaterally (3) Right thyroid nodule: Code(s): E04.1 - Nontoxic single thyroid nodule Status: Acute Assessment and Plan: Ultrasound without significant abnormality -no further follow-up warranted (4) Right upper lobe pulmonary nodule: Code(s): R91.1 - Solitary pulmonary nodule Status: Acute Assessment and Plan: Low-dose chest CT in 12 months recommended for follow-up of a 3 mm right upper lobe nodule (5) Hypoxemia: Code(s): R09.02 - Hypoxemia Status: Acute Assessment and Plan: Resolved (6) Chronic anemia: Code(s): D64.9 - Anemia, unspecified Status: Acute Assessment and Plan: Last hemoglobin 10.2 -B12 and folate normal -no signs of blood loss -Pt will to f/u with primary for either cologuard test or colonoscopy. (7) Type 2 diabetes mellitus: Code(s): E11.9 - Type 2 diabetes mellitus without complications Status: Acute Assessment and Plan: Last glucose 120 -continue sliding scale insulin -Recent hemoglobin A1c 08/2020 was 6.2%. -continue metformin at d/c (8) Essential hypertension: Code(s): I10 - Essential (primary) hypertension Status: Chronic Assessment and Plan: Last blood pressure 142/71 -continue lisinopril and verapamil -will need this monitor on mirabegron (9) Pyelonephritis: Code(s): N12 - Tubulo-interstitial nephritis, not specified as acute or chronic Status: Acute Assessment and Plan: as above DS: Summary Hospital Course Hospital Course: Pt is a 80 y/o male who presented to the ED 09/23/20 for weakness. states he is 'aways tired' but has been really weak the last 2-3 days. She says that he was back to about normal after his last discharge and was doing well and then suddenly felt much weaker so she javier him in. Vitals in the ER were stable. Inital WBC 13.2, hgb 11.5, hgct 35.9, platelets 179. UA suspicious for UTI. CXR negative. Head CT neg for acute pathology. CTA showed no large pulmonary embolism with limited eval of peripheral pulmonary arteries. Pt required o2 very briefly and never complained of SOB thereafter, PE seemed less likely in the setting of acute infection. Pt was admitted to the hospitalist service and underwent an echo and thyroid u/s which did not show any cause for concern. He also underwent an abdomen/pelvis CT which showed left sided pyelonephr
[2020-09-27 14:58] LABS: Glucose Point of Care 123 (65-105)
--- NOTE | 2020-10-04 14:07 | PC.NURSE ---
Blood cx are negative.
== END 2020-09-27 13:49 | disposition home or self-care (01) | DRG 690 ==
LOC: ANHED 11:29 → ANH3MEDSUR 12:18
PROVIDERS: Physician Assistant; Admitting Provider Family Medicine; Emergency Provider General Practice; PCP Internal Medicine; Visit Provider Internal Medicine
DX: N39.0 Urinary tract infection, site not specified (principal); B96.1 Klebsiella pneumoniae [K. pneumoniae] as the cause of diseases classified elsewhere; R31.29 Other microscopic hematuria; N20.0 Calculus of kidney; N39.46 Mixed incontinence; R53.1 Weakness; D64.9 Anemia, unspecified; E11.9 Type 2 diabetes mellitus without complications; J43.9 Emphysema, unspecified; R91.1 Solitary pulmonary nodule; R09.02 Hypoxemia; I10 Essential (primary) hypertension; E78.5 Hyperlipidemia, unspecified; E04.1 Nontoxic single thyroid nodule; K76.0 Fatty (change of) liver, not elsewhere classified; R16.1 Splenomegaly, not elsewhere classified; Z79.84 Long term (current) use of oral hypoglycemic drugs; Z85.46 Personal history of malignant neoplasm of prostate; Z98.42 Cataract extraction status, left eye; Z98.41 Cataract extraction status, right eye; Z96.1 Presence of intraocular lens
CPT/HCPCS: 36415; 36600; 70450; 71046; 71275; 74018; 74178; 76536; 76775; 80048; 80053; 81001; 82375; 82607; 82728; 82746; 82805; 82948; 83050; 83540; 83550; 83690; 83735; 83880; 84100; 84439; 84443; 84484; 85025; 85027; 85610; 85730; 87040; 87077; 87086; 87088; 87186; 93005; 93306; 94762; 96361; 96365; 96366; 96367; 96375; 97110; 97116; 97161; 97165; 97530; 97535; 99285; A9270; G0378; J0131; J0696; J2405; J7120; Q9967

== ENCOUNTER 2020-10-13 11:05 | Outpatient (CLI) | payer OTHER, SELFPAY ==
--- NOTE | ~2020-10-13 | XR_ITS ---
EXAMINATION: XR abdomen/kub 1V EXAM DATE: 10/13/2020 11:24 INDICATION: Kidney stone. TECHNIQUE: Frontal projection of the upper abdomen, frontal projection lower abdomen/pelvis for inter pretation. Comparison is made to prior examination from 09/24/2020. FINDINGS: There is approximately 5 mm left inferior calyceal stone again noted. Moderate amount colon ic stool, obscuring the right renal contour. Pelvic surgical clips and right iliac Paget's disease. N onobstructive bowel gas pattern. IMPRESSION: 1. Left nephrolithiasis. 2. Right iliac Paget's disease. 3. Moderate stool. Reviewed, dictated and finalized at location A.
== END 2020-10-13 11:06 | disposition home or self-care (01) ==
LOC: ANHIMG 11:07
PROVIDERS: PCP Internal Medicine; Visit Provider Urology
DX: N20.0 Calculus of kidney (principal); M88.851 Osteitis deformans of right thigh
CPT/HCPCS: 74018

== ENCOUNTER → 2020-11-06 00:16 | Outpatient (CLI) | payer OTHER, SELFPAY ==
[2020-11-06 17:56] LABS: SARS-CoV-2 RNA PCR Negative
== END ==
PROVIDERS: PCP Internal Medicine; Visit Provider Internal Medicine Gastroenterology
DX: Z01.812 Encounter for preprocedural laboratory examination (principal); Z20.822 Contact with and (suspected) exposure to COVID-19
CPT/HCPCS: C9803; U0003; U0005

== ENCOUNTER 2020-11-10 01:31 | Day surgery (SDC) | payer OTHER, SELFPAY ==
[2020-11-04 11:42] VITALS: BMI 27.9
--- NOTE | 2020-11-09 13:28 | WPDANESEPPF ---
Anes - Initial Pre Proc Eval Procedure: Operation Date: 11/10/20 10:30 Proposed Procedures p Colonoscopy - Ruperto Alberto MD Date/Time: 11/09/20 13:28 Surgeon: Ruperto Alberto MD Pre Op Diagnosis: positive cologuard, hx of colon polyps Patient Data Age: 80 Gender: M Height: 1.8 m Weight: 91 kg Allergies Allergy/AdvReac Type Severity Reaction Status Date / Time No Known Allergies Allergy Verified 11/08/20 09:49 Home Medications Medication Instructions Recorded Confirmed Type guaifenesin [Mucinex] 600 mg PO DAILY PRN 09/01/20 11/08/20 History polyethylene glycol 3350 [Miralax] 17 g PO HS 09/01/20 11/08/20 History simvastatin 10 mg PO HS 09/01/20 11/08/20 History blood sugar diagnostic #100 ea 09/13/20 09/23/20 Rx lancets 30 gauge #100 ea 09/13/20 09/23/20 Rx mirabegron [Myrbetriq] 25 mg PO HS #30 tablet 09/27/20 11/08/20 Rx Boswellia, jasiel, turmeric oral 3 tab-cap PO DAILY 10/11/20 11/08/20 History acetaminophen 500 mg tablet 1,000 mg PO Q6H PRN tablet 10/11/20 11/08/20 History catalyn Oral 3 tab-cap PO DAILY 10/11/20 11/08/20 History cholecalciferol (vit D3) 1,000 1 tablet PO DAILY 10/11/20 11/08/20 History unit-vitamin K2 (MK4) 100 mcg tablet azelastine 1 mcg INTRANASAL BID 11/04/20 11/08/20 History docusate sodium [Colace] 100 mg PO HS 11/04/20 11/08/20 History omeprazole 40 mg PO DAILY 11/04/20 11/08/20 History psyllium husk [Metamucil] 0.4 g PO HS 11/04/20 11/08/20 History verapamil 180 mg PO QAM 11/04/20 11/08/20 History gabapentin 300 mg PO QAM 11/08/20 11/08/20 History lisinopril 40 mg PO QAM 11/08/20 11/08/20 History metformin 500 mg PO QAM 11/08/20 11/08/20 History Patient hx anesthesia problems: none Family hx anesthesia problems: none PMFSH Past Medical History Medical History Abnormal PFT (~02/2018) Obstructive ventilatory defect suggested with decreased FVC/SVC but timed flows are normal. Mildly decreased DLCO. Chest CT on 09/23/2020 showed emphysema. Benign paroxysmal positional vertigo Chronic anemia Essential hypertension Gastroesophageal reflux disease Hypercholesteremia Kidney stone Paget's disease of bone Pancreatic cyst Prostate cancer Status post radical prostatectomy in 2006. Small bowel obstruction (~04/2018) Type 2 diabetes mellitus Hemoglobin A1c was 6.2% on 09/02/2020. Surgical History Surgical History History of basal cell carcinoma (BCC) History of cardiac cath Reportedly normal History of colonoscopy with polypectomy (~05/2017) Internal hemorrhoids, and melanosis coli noted on colonoscopy performed by Dr. Alberto. Pathology consistent with tubulovillous adenoma History of esophagogastroduodenoscopy (EGD) (~06/2006) Demonstrated esophagitis History of exploratory laparotomy (~1965) History of lateral meniscus repair of right knee (~01/27/20) History of radical prostatectomy (~08/2006) History of tonsillectomy Status post cataract extraction of both eyes with insertion of intraocular lens Family History Family History Mother Diabetes mellitus Heart disease Sibling Diabetes mellitus Father Motor vehicle crash, injury Son Diabetes mellitus Social History Social History Social History: The patient is and lives with his in [place]. He has been 3 times and has been with his current for approximately 26 years. He has a total of 10 children. 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 He has a remote history of smoking and quit 1968. Primary care physician: Dr. Ivan Bacon Code status: Full code Surrogate decision maker: Caprice () Smoking packs per day: 1 Smoking cigarettes per day: 20.0 Years smoked: 10 Smoking pack-years: 10.00 Smoking status: Former smoker Tobacc
[2020-11-10] MEDS: LACTATED RINGERS 1,000 ML 150 ML IV CONT (09:44)
[2020-11-10 09:51] LABS: Glucose Point of Care 111 mg/dl (65-105)
--- NOTE | 2020-11-10 10:10 | WPDGICN ---
Assessment and Plan Assessment and plan (1) Positive colorectal cancer screening using Cologuard test: Code(s): R19.5 - Other fecal abnormalities Status: Acute Assessment and Plan: Patient presents for colonoscopy because of positive coloGuard test. (2) History of colon polyps: Code(s): Z86.010 - Personal history of colonic polyps Status: Acute Assessment and Plan: Patient also has a history of colon polyps for this reason colonoscopy performed. Because of colon polyps would not suggest coloGuard test in the future. 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 Most recent CT scan Reveals stable cystic pancreatic lesions. GI Consult Note Consult date/time: 11/10/20 10:10 HPI: aBkari Weathers is a 80 year old male Presents for colonoscopy. He was recently found to have positive cologuard test. Patient also has a history of colon polyps in 2018. For these reasons he presents for screening colonoscopy. Patient has seen Dr. 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 Most recent CT scan 2020 revealed stable cystic pancreatic lesions. Review of Systems Review of Systems: All systems reviewed & are unremarkable except as noted in HPI and below PMFSH Past Medical History Medical History Abnormal PFT (~02/2018) Obstructive ventilatory defect suggested with decreased FVC/SVC but timed flows are normal. Mildly decreased DLCO. Chest CT on 09/23/2020 showed emphysema. Benign paroxysmal positional vertigo Chronic anemia Essential hypertension Gastroesophageal reflux disease Hypercholesteremia Kidney stone Paget's disease of bone Pancreatic cyst Prostate cancer Status post radical prostatectomy in 2006. Small bowel obstruction (~04/2018) Type 2 diabetes mellitus Hemoglobin A1c was 6.2% on 09/02/2020. Surgical History Surgical History History of basal cell carcinoma (BCC) History of cardiac cath Reportedly normal History of colonoscopy with polypectomy (~05/2017) Internal hemorrhoids, and melanosis coli noted on colonoscopy performed by Dr. Alberto. Pathology consistent with tubulovillous adenoma History of esophagogastroduodenoscopy (EGD) (~06/2006) Demonstrated esophagitis History of exploratory laparotomy (~1965) History of lateral meniscus repair of right knee (~01/27/20) History of radical prostatectomy (~08/2006) History of tonsillectomy Status post cataract extraction of both eyes with insertion of intraocular lens Family History Family History Mother Diabetes mellitus Heart disease Sibling Diabetes mellitus Father Motor vehicle crash, injury Son Diabetes mellitus Social History Social History Social History: The patient is and lives with his in [place]. He has been 3 times and has been with his current for approximately 26 years. He has a total of 10 children. 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 He has a remote history of smoking and quit 1968. Primary care physician: Dr. Ivan Bacon Code status: Full code Surrogate decision maker: Caprice () Smoking packs per day: 1 Smoking cigarettes per day: 20.0 Years smoked: 10 Smoking pack-years: 10.00 Smoking status: Former smoker Tobacco type: cigarettes Second hand tobacco smoke exposure: No Smoking end date: 11/25/1964 Additional smoking assessment comments: STATES 1PK/DAY/QUIT 1964 Alcohol intake: former Substance use: never Substance use type: does not use Living arrangements: with family Additional living arrangemen
[2020-11-10 11:06] VITALS: BP 104/56; PULSE 67; RESP 17; O2SAT 94
[2020-11-10 11:16] VITALS: BP 108/54; PULSE 68; RESP 23; O2SAT 95
[2020-11-10 11:26] VITALS: BP 112/64; PULSE 66; RESP 20; O2SAT 95
== END 2020-11-10 11:38 | disposition home or self-care (01) ==
PROVIDERS: PCP Internal Medicine; Visit Provider Internal Medicine Gastroenterology
PROC: 0DJD8ZZ Inspection of Lower Intestinal Tract, Via Natural or Artificial Opening Endoscopic (ICD-10-PCS; CPT 45378; principal; 2020-11-10 10:30)
DX: R19.5 Other fecal abnormalities (principal); D12.0 Benign neoplasm of cecum; K63.89 Other specified diseases of intestine; K57.30 Diverticulosis of large intestine without perforation or abscess without bleeding; K64.8 Other hemorrhoids; K86.2 Cyst of pancreas; I10 Essential (primary) hypertension; E78.00 Pure hypercholesterolemia, unspecified; K21.9 Gastro-esophageal reflux disease without esophagitis; D64.9 Anemia, unspecified; M88.9 Osteitis deformans of unspecified bone; E11.9 Type 2 diabetes mellitus without complications; Z85.46 Personal history of malignant neoplasm of prostate; Z87.891 Personal history of nicotine dependence; Z79.84 Long term (current) use of oral hypoglycemic drugs
CPT/HCPCS: 45385; 82948; 88305; C9803; J2704; J7120; U0003; U0005

== ENCOUNTER 2020-11-12 10:26 | Outpatient (CLI) | payer OTHER, SELFPAY ==
[2020-11-12 11:54] LABS: Anion Gap 9 mmol/L (8-16); Blood Urea Nitrogen 12 mg/dL (9-20); Calcium 9.4 mg/dL (8.4-10.2); Carbon Dioxide 30 mmol/L (22-30); Chloride 103 mmol/L (98-107); Estimated Glomerular Filt Rate > 60; Glucose 112 mg/dL (75-110); Potassium 3.8 mmol/L (3.4-5.0); Sodium 142 mmol/L (137-145)
[2020-11-12 12:26] LABS: INR 1.1; Prothrombin Time 14.4 Seconds (11.1-14.7)
[2020-11-12 12:27] LABS: Partial Thromboplastin Time 29.1 SECONDS (22.3-36.8)
== END 2020-11-12 10:27 | disposition home or self-care (01) ==
LOC: ANHSURGERY 10:32
PROVIDERS: Anesthesiology; PCP Internal Medicine; Visit Provider Urology
DX: N20.0 Calculus of kidney (principal); E11.65 Type 2 diabetes mellitus with hyperglycemia
CPT/HCPCS: 36415; 80048; 85610; 85730; 87086

== ENCOUNTER → 2020-11-16 02:13 | Outpatient (CLI) | payer OTHER, SELFPAY ==
[2020-11-17 16:37] LABS: SARS-CoV-2 RNA PCR Negative
== END ==
PROVIDERS: PCP Internal Medicine; Visit Provider Urology
DX: Z01.812 Encounter for preprocedural laboratory examination (principal); Z20.822 Contact with and (suspected) exposure to COVID-19
CPT/HCPCS: C9803; U0003; U0005

== ENCOUNTER 2020-11-19 03:13 | Observation (INO) | payer OTHER, SELFPAY ==
[2020-11-19] VITALS (17 sets, daily range): BP systolic 107–139; BP diastolic 62–105; PULSE 59–101; RESP 16–23; TEMP 36.1–36.9; O2SAT 93–100; BMI 27.1
--- NOTE | 2020-11-19 03:33 | ED.GIBLEED ---
HPI - GI Bleed General Chief complaint: GI Bleed Stated complaint: GI Bleed Time Seen by Provider: 11/19/20 03:24 History of Present Illness HPI Narrative: 80 yo male presents to the ED for a GI bleed. 3 loose and grossly bloody stools since yesterday evening. He had a colonoscopy done 1 week ago showing internal hemorrhoids and diverticulosis as well as mild melanosis. He did have one episode of non bloody emesis as well. No pain, fever, weakness. Related Data Home Medications Medication Instructions Recorded Confirmed guaifenesin [Mucinex] 600 mg PO DAILY PRN 09/01/20 11/08/20 polyethylene glycol 3350 [Miralax] 17 g PO HS 09/01/20 11/08/20 simvastatin 10 mg PO HS 09/01/20 11/08/20 Boswellia, jasiel, turmeric oral 3 tab-cap PO DAILY 10/11/20 11/08/20 acetaminophen 500 mg tablet 1,000 mg PO Q6H PRN tablet 10/11/20 11/08/20 catalyn Oral 3 tab-cap PO DAILY 10/11/20 11/08/20 cholecalciferol (vit D3) 1,000 1 tablet PO DAILY 10/11/20 11/08/20 unit-vitamin K2 (MK4) 100 mcg tablet azelastine 1 mcg INTRANASAL BID 11/04/20 11/08/20 docusate sodium [Colace] 100 mg PO HS 11/04/20 11/08/20 omeprazole 40 mg PO DAILY 11/04/20 11/08/20 psyllium husk [Metamucil] 0.4 g PO HS 11/04/20 11/08/20 verapamil 180 mg PO QAM 11/04/20 11/08/20 gabapentin 300 mg PO QAM 11/08/20 11/08/20 lisinopril 40 mg PO QAM 11/08/20 11/08/20 metformin 500 mg PO QAM 11/08/20 11/08/20 Allergies Allergy/AdvReac Type Severity Reaction Status Date / Time No Known Allergies Allergy Verified 11/19/20 03:29 Review of Systems Review of Systems: All systems reviewed & are unremarkable except as noted in HPI and below Constitutional: Constitutional: Denies chills and Denies fever(s) Cardiovascular: Cardiovascular: Denies chest pain Respiratory: Respiratory: Denies dyspnea Gastrointestinal: Gastrointestinal: Denies abdominal pain Genitourinary: Genitourinary: Reports no additional male genitourinary complaints Neurologic: Denies dizziness and Denies weakness PMFSH Past Medical History Medical History Abnormal PFT (~02/2018) Obstructive ventilatory defect suggested with decreased FVC/SVC but timed flows are normal. Mildly decreased DLCO. Chest CT on 09/23/2020 showed emphysema. Benign paroxysmal positional vertigo Chronic anemia Essential hypertension Gastroesophageal reflux disease Hypercholesteremia Kidney stone Paget's disease of bone Pancreatic cyst Prostate cancer Status post radical prostatectomy in 2006. Small bowel obstruction (~04/2018) Type 2 diabetes mellitus Hemoglobin A1c was 6.2% on 09/02/2020. Surgical History Surgical History History of basal cell carcinoma (BCC) History of cardiac cath Reportedly normal History of colonoscopy with polypectomy (~05/2017) Internal hemorrhoids, and melanosis coli noted on colonoscopy performed by Dr. Alberto. Pathology consistent with tubulovillous adenoma History of esophagogastroduodenoscopy (EGD) (~06/2006) Demonstrated esophagitis History of exploratory laparotomy (~1965) History of lateral meniscus repair of right knee (~01/27/20) History of radical prostatectomy (~08/2006) History of tonsillectomy Status post cataract extraction of both eyes with insertion of intraocular lens Family History Family History Mother Diabetes mellitus Heart disease Sibling Diabetes mellitus Father Motor vehicle crash, injury Son Diabetes mellitus Social History Social History Social History: The patient is and lives with his in [place]. He has been 3 times and has been with his current for approximately 26 years. He has a total of 10 children. 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 He has a remote history of smoking and quit 1968. Kiersten
[2020-11-19 04:01] LABS: Basophils Percent Auto 0.3 % (0.2-1.2); Eosinophils Absolute Auto 0.2 K/mm3 (0-0.3); Eosinophils Percent Auto 2.4 % (0-4.4); Hematocrit 32.8 % (42.0-52.0); Hemoglobin 10.2 g/dL (14.0-18.0); Immature Granulocyte Absolute 0.03 K/mm3 (0.00-0.031); Immature Granulocyte Percent A 0.4 % (0-0.5); Lymphocytes Absolute Auto 1.11 K/mm3 (0.9-3.2); Lymphocytes Percent Auto 14.8 % (18.3-44.2); Mean Corpuscular HGB Conc 31.1 g/dl (32-36); Mean Corpuscular Hemoglobin 27.4 pg (26-34); Mean Corpuscular Volume 88.2 fl (80-100); Mean Platelet Volume 12.4 fl (7.4-10.4); Monocytes Absolute Auto 0.6 K/mm3 (0.1-0.6); Monocytes Percent Auto 8.4 % (2.6-8.5); Neutrophils Absolute Auto 5.5 K/mm3 (1.3-6.7); Neutrophils Percent Auto 73.7 % (45.5-73.1); Platelet Count Result 230 k/mm3 (150-375); Red Blood Count 3.72 M/mm3 (4.6-6.20); Red Cell Distribution Width 15.9 % (11.5-14.5); White Blood Count 7.5 K/mm3 (4.5-10.0)
[2020-11-19 04:12] LABS: Alanine Aminotransferase 15 U/L (4-50); Alkaline Phosphatase 46 U/L (38-126); Anion Gap 7 mmol/L (8-16); Aspartate Amino Transferase 26 U/L (17-59); Bilirubin,Total 0.4 mg/dL (0.2-1.3); Blood Urea Nitrogen 19 mg/dL (9-20); Carbon Dioxide 27 mmol/L (22-30); Chloride 107 mmol/L (98-107); Estimated CRCL calculation 67 ml/min; Estimated Glomerular Filt Rate > 60; Glucose 145 mg/dL (75-110); Potassium 4.6 mmol/L (3.4-5.0); Sodium 141 mmol/L (137-145)
[2020-11-19 04:14] LABS: INR 1.2; Prothrombin Time 15.3 Seconds (11.1-14.7)
[2020-11-19] MEDS: SODIUM CHLORIDE 0.9% IV 1,000 ML 999 ML (04:33)
[2020-11-19] MEDS: PANTOPRAZOLE SODIUM IV 40 MG VIAL IV PUSH (06:14)
[2020-11-19] MEDS: SODIUM CHLORIDE 0.9% IV 1,000 ML 75 ML IV CONT (06:57)
--- NOTE | 2020-11-19 06:59 | ADMGEN ---
This patient, Bakari Weathers, was admitted to [facility] Surg Room 333-01 on 11/19/20 at 0645. Patient/family oriented to hospital policies and general routines including ID bracelet, bed and alarms, visiting hours, pain management, procedures, bathroom and other care routines, personal items, smoking policy, room service/diet, and visiting hours. Information on how to activate the Rapid Response Team has been discussed. Patient/Family are encouraged to report perceived risks to care and to ask questions if they do not understand what they are told or what they should do.
[2020-11-19 08:41] LABS: Glucose Point of Care 155 mg/dl (65-105)
[2020-11-19 08:56] LABS: Hematocrit 29.4 % (42.0-52.0)
--- NOTE | 2020-11-19 10:39 | PC.NURSE ---
Pt xferred to IMU 210. made aware; got home medication list and put in home medications. Report to Katty. Call made to Dr. Alberto to make him aware of 3xBM with tatum blood and large clots.
--- NOTE | 2020-11-19 11:01 | PM.IMHP ---
H&P: HPI History of Present Illness Date/Time: 11/19/20 11:01 Chief Complaint: Lower GI bleeding Narrative: Patient with past medical history of colon polyps, diabetes, hypertension, and hyperlipidemia. Presented to the emergency department with chief complaint of lower GI bleeding, started last night, occurred multiple times, patient just had large bloody bowel movement twice in the hospital so far, patient denies any pain or nausea, bloody bowel movement is moderate and intermittent, associated with diarrhea. Patient had colonoscopy by Dr. Alberto in November 10, 2020. Review of Systems Review of Systems: All systems reviewed & are unremarkable except as noted in HPI and below Constitutional: Constitutional: Denies body ache(s) and Denies fatigue Eyes: Eyes: Denies blurry vision ENT: Denies dry mouth Cardiovascular: Cardiovascular: Denies chest pain with activity and Denies dyspnea Respiratory: Respiratory: Denies dyspnea Gastrointestinal: Gastrointestinal: Denies abdominal pain Genitourinary: Genitourinary: Denies genital pain Musculoskeletal: Musculoskeletal: Denies deformity Neurologic: Denies seizure-like activity Psychiatric: Psychiatric: Denies homicidal ideation Endocrine: Endocrine: Denies fatigue [facility] Past Medical History Medical History Abnormal PFT (~02/2018) Obstructive ventilatory defect suggested with decreased FVC/SVC but timed flows are normal. Mildly decreased DLCO. Chest CT on 09/23/2020 showed emphysema. Benign paroxysmal positional vertigo Chronic anemia Essential hypertension Gastroesophageal reflux disease Hypercholesteremia Kidney stone Paget's disease of bone Pancreatic cyst Prostate cancer Status post radical prostatectomy in 2006. Small bowel obstruction (~04/2018) Type 2 diabetes mellitus Hemoglobin A1c was 6.2% on 09/02/2020. Surgical History Surgical History History of basal cell carcinoma (BCC) History of cardiac cath Reportedly normal History of colonoscopy with polypectomy (~05/2017) Internal hemorrhoids, and melanosis coli noted on colonoscopy performed by Dr. Alberto. Pathology consistent with tubulovillous adenoma History of esophagogastroduodenoscopy (EGD) (~06/2006) Demonstrated esophagitis History of exploratory laparotomy (~1965) History of lateral meniscus repair of right knee (~01/27/20) History of radical prostatectomy (~08/2006) History of tonsillectomy Status post cataract extraction of both eyes with insertion of intraocular lens Family History Family History Mother Diabetes mellitus Heart disease Sibling Diabetes mellitus Father Motor vehicle crash, injury Son Diabetes mellitus Social History Social History Social History: The patient is and lives with his in [place]. He has been 3 times and has been with his current for approximately 26 years. He has a total of 10 children. 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 He has a remote history of smoking and quit 1968. Primary care physician: Dr. Ivan Bacon Code status: Full code Surrogate decision maker: Caprice () Smoking packs per day: 1 Smoking cigarettes per day: 20.0 Years smoked: 10 Smoking pack-years: 10.00 Smoking status: Former smoker Tobacco type: cigarettes Second hand tobacco smoke exposure: No Smoking end date: 11/25/1964 Alcohol intake: never Substance use: never Substance use type: does not use Additional living arrangements comments: Gender identity (if verbalized by the patient): Male Sexual Orientation (if Verbalized by the Patient): Straight or Heterosexual Spiritual care concerns: No Meds Home Medications and Allergies Home Medications Medication Instructi
--- NOTE | 2020-11-19 11:48 | WPDGICN ---
Assessment and Plan Assessment and plan (1) Acute lower GI bleeding: Code(s): K92.2 - Gastrointestinal hemorrhage, unspecified Status: Acute Assessment and Plan: Patient appears to have post polypectomy bleeding. Patient is 9 or 10 days after colonoscopy and polypectomy. Sessile cecal adenomatous polyp was removed with snare. Plan is for observation initially. Usually these bleeding episodes will stop on their own. If bleeding fails to adam throughout the day today in preparation in subsequent colonoscopy will be required. We will follow with you antrum. (2) History of colon polyps: Code(s): Z86.010 - Personal history of colonic polyps Status: Acute Assessment and Plan: Patient recently found to have benign adenomatous colon polyp in the cecum. Patient has had polyps previously as well. Would advise follow-up colonoscopy in 3-5 years ultimately period GI Consult Note Consult date/time: 11/19/20 11:48 HPI: Bakari Weathers is a 80 year old male presented to the ER with GI bleeding. Patient has a history of colon polyps. Recently had positive cologuard test. Colonoscopy was performed on 11/03/2020. A cecal colon polyp removed. He also had diverticulosis and hemorrhoids. Patient did well until last evening 11:00 a.m.. Since then is begun to pass moderate amount of dark red blood her stool. This prompted him to go to the emergency room. Patient denies any lightheadedness. He has had no syncope. In the ER his initial hemoglobin was stable compared to previous labs. Slight decline in hemoglobin has subsequently been noted. Patient has had several additional bowel movements since admission the hospital. Patient denies abdominal pain. He has had no fever. He has no other history of bleeding tendencies. Review of Systems Review of Systems: All systems reviewed & are unremarkable except as noted in HPI and below PMFSH Past Medical History Medical History Abnormal PFT (~02/2018) Obstructive ventilatory defect suggested with decreased FVC/SVC but timed flows are normal. Mildly decreased DLCO. Chest CT on 09/23/2020 showed emphysema. Benign paroxysmal positional vertigo Chronic anemia Essential hypertension Gastroesophageal reflux disease Hypercholesteremia Kidney stone Paget's disease of bone Pancreatic cyst Prostate cancer Status post radical prostatectomy in 2006. Small bowel obstruction (~04/2018) Type 2 diabetes mellitus Hemoglobin A1c was 6.2% on 09/02/2020. Surgical History Surgical History History of basal cell carcinoma (BCC) History of cardiac cath Reportedly normal History of colonoscopy with polypectomy (~05/2017) Internal hemorrhoids, and melanosis coli noted on colonoscopy performed by Dr. Alberto. Pathology consistent with tubulovillous adenoma History of esophagogastroduodenoscopy (EGD) (~06/2006) Demonstrated esophagitis History of exploratory laparotomy (~1965) History of lateral meniscus repair of right knee (~01/27/20) History of radical prostatectomy (~08/2006) History of tonsillectomy Status post cataract extraction of both eyes with insertion of intraocular lens Family History Family History Mother Diabetes mellitus Heart disease Sibling Diabetes mellitus Father Motor vehicle crash, injury Son Diabetes mellitus Social History Social History Social History: The patient is and lives with his in [place]. He has been 3 times and has been with his current for approximately 26 years. He has a total of 10 children. 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 He has a remote history of smoking and quit 1968. Primary care physician: Dr. Ivan Bacon Code status: Full code Surrogate decision
[2020-11-19 12:17] LABS: Hematocrit 28.5 % (42.0-52.0); Hemoglobin 8.9 g/dL (14.0-18.0)
[2020-11-19 19:06] LABS: Hematocrit 25.6 % (42.0-52.0); Hemoglobin 7.9 g/dL (14.0-18.0)
[2020-11-19] MEDS: SODIUM CHLORIDE 0.9% IV 250 ML 30 ML IV CONT (21:07)
[2020-11-19] MEDS: SIMVASTATIN 10 MG TABLET PO (21:09)
[2020-11-19] MEDS: TUBING, BLOOD PLUM PUMP TUBING 1 EACH XX (21:24)
[2020-11-20] VITALS (21 sets, daily range): BP systolic 108–134; BP diastolic 54–78; PULSE 74–97; RESP 16–18; TEMP 36.3–36.9; O2SAT 92–98
[2020-11-20] MEDS: TUBING, BLOOD PLUM PUMP TUBING 1 EACH XX (04:55)
[2020-11-20] MEDS: SODIUM CHLORIDE 0.9% IV 1,000 ML 75 ML IV CONT ×2 (05:02→21:10)
[2020-11-20 05:43] LABS: Basophils Percent Auto 0.2 % (0.2-1.2); Eosinophils Absolute Auto 0.1 K/mm3 (0-0.3); Eosinophils Percent Auto 1.6 % (0-4.4); Hematocrit 28.9 % (42.0-52.0); Immature Granulocyte Absolute 0.03 K/mm3 (0.00-0.031); Immature Granulocyte Percent A 0.6 % (0-0.5); Lymphocytes Absolute Auto 0.84 K/mm3 (0.9-3.2); Lymphocytes Percent Auto 16.6 % (18.3-44.2); Mean Corpuscular HGB Conc 31.1 g/dl (32-36); Mean Corpuscular Hemoglobin 27.7 pg (26-34); Mean Corpuscular Volume 88.9 fl (80-100); Mean Platelet Volume 12.1 fl (7.4-10.4); Monocytes Absolute Auto 0.4 K/mm3 (0.1-0.6); Monocytes Percent Auto 7.5 % (2.6-8.5); Neutrophils Absolute Auto 3.7 K/mm3 (1.3-6.7); Neutrophils Percent Auto 73.5 % (45.5-73.1); Platelet Count Result 171 k/mm3 (150-375); Red Blood Count 3.25 M/mm3 (4.6-6.20); Red Cell Distribution Width 15.8 % (11.5-14.5); White Blood Count 5.1 K/mm3 (4.5-10.0)
[2020-11-20 06:10] LABS: Anion Gap 4 mmol/L (8-16); Blood Urea Nitrogen 12 mg/dL (9-20); Calcium 8.5 mg/dL (8.4-10.2); Carbon Dioxide 27 mmol/L (22-30); Chloride 107 mmol/L (98-107); Estimated CRCL calculation 76 ml/min; Estimated Glomerular Filt Rate > 60; Glucose 112 mg/dL (75-110); Magnesium 1.8 mg/dL (1.6-2.3); Phosphorus 3.3 mg/dL (2.5-4.5); Potassium 4.4 mmol/L (3.4-5.0); Sodium 138 mmol/L (137-145)
[2020-11-20] MEDS: lisinopriL 20 MG TABLET 40 MG PO (08:54)
[2020-11-20] MEDS: VERAPAMIL HCL 180 MG TABLET ER PO (08:54)
[2020-11-20] MEDS: GABAPENTIN 300 MG CAPSULE PO (08:54)
[2020-11-20 11:38] LABS: Hematocrit 27.6 % (42.0-52.0); Hemoglobin 8.9 g/dL (14.0-18.0)
--- NOTE | 2020-11-20 12:06 | WPDGIPROGNO ---
Progress Note: A&P Assessment and Plan (1) Acute lower GI bleeding: Code(s): K92.2 - Gastrointestinal hemorrhage, unspecified Status: Acute Assessment and Plan: Patient comfortable no additional bleeding reported overnight. Patient now recovering after post polypectomy bleeding. No signs of additional blood loss overnight. Plan to advance diet. Discharge when hemoglobin stable. If hemoglobin stable at noon would allow discharge. He did receive transfusion of 2units of blood during this hospital stay. (2) History of colon polyps: Code(s): Z86.010 - Personal history of colonic polyps Status: Acute Assessment and Plan: Adenomatous colon polyp resected at colonoscopy. Plan for follow-up colonoscopy in 3-5 years. (3) Chronic anemia: Code(s): D64.9 - Anemia, unspecified Status: Acute Assessment and Plan: Baseline hemoglobin about 10. Hemoglobin essentially 9 this morning. If stable after next blood draw would allow discharge. Subjective Date/time seen: 11/20/20 12:06 Patient feels much better today. He has had no recent bowel movements. None overnight. Ambulating in the room with no lightheadedness. Hungry and wants more solid food. Review of Systems Review of Systems: All systems reviewed & are unremarkable except as noted in HPI and below Exam Narrative: Exam Narrative: Physical exam reveals patient be alert and comfortable. Ambulating in the room. Vital signs stable. Lungs are clear. Heart without murmur. Abdomen bowel sounds present soft nontender with no organomegaly. Objective Data Vital Signs Vital Signs: Vital Signs - 24 hr 11/19/20 14:00 11/19/20 16:00 11/19/20 16:19 Temperature 97.1 F L Pulse Rate 91 94 59 L Respiratory Rate 20 Blood Pressure 132/105 H Pulse Oximetry 100 11/19/20 18:00 11/19/20 20:00 11/19/20 21:25 Temperature 97.6 F 97.0 F L Pulse Rate 99 93 92 Respiratory Rate 16 18 Blood Pressure 121/63 110/66 Pulse Oximetry 97 98 11/19/20 21:52 11/19/20 22:00 11/19/20 22:52 Temperature 97.9 F 98.0 F Pulse Rate 89 89 92 Respiratory Rate 16 18 Blood Pressure 121/71 112/65 Pulse Oximetry 93 93 11/19/20 23:31 11/19/20 23:50 11/20/20 00:00 Temperature 98 F 98.4 F Pulse Rate 92 91 86 Respiratory Rate 18 20 Blood Pressure 112/65 107/65 Pulse Oximetry 93 95 11/20/20 00:36 11/20/20 00:56 11/20/20 01:56 Temperature 98.5 F 98.3 F 98.3 F Pulse Rate 83 86 82 Respiratory Rate 18 18 18 Blood Pressure 108/63 115/63 110/60 Pulse Oximetry 92 92 94 11/20/20 02:00 11/20/20 02:56 11/20/20 03:22 Temperature 98.1 F 98.1 F Pulse Rate 97 79 79 Respiratory Rate 18 18 Blood Pressure 113/61 113/61 Pulse Oximetry 94 94 11/20/20 03:53 11/20/20 04:00 11/20/20 06:00 Temperature 98 F Pulse Rate 81 87 92 Respiratory Rate 18 Blood Pressure 110/60 Pulse Oximetry 95 11/20/20 07:38 11/20/20 11:32 Temperature 97.6 F 97.6 F Pulse Rate 78 83 Respiratory Rate 18 18 Blood Pressure 134/78 124/54 L Pulse Oximetry 98 95 Intake/Output Intake/Output: Intake & Output 11/17/20 11/18/20 11/19/20 11/20/20 23:59 23:59 23:59 23:59 Intake Total 2222 840 Balance 2222 840 Meds/Results Medications: Active Medications Generic Name Dose Route Start Last Admin Trade Name Freq PRN Reason Stop Dose Admin Gabapentin 300 mg 11/20/20 09:00 11/20/20 08:54 Gabapentin 300 Mg Capsule PO 300 mg QAM JIMMIE Administration Sodium Chloride 1,000 mls @ 75 mls/hr 11/19/20 06:00 11/20/20 05:02 Normal Saline Iv IV CONT 75 mls/hr .[id number] JIMMIE Administration Lisinopril 40 mg 11/20/20 09:00 11/20/20 08:54 Lisinopril 20 Mg Tablet PO 40 mg QAM JIMMIE Administration Simvastatin 10 mg 11/19/20 21:00 11/19/20 21:09 Simvastatin 10 Mg Tablet PO 10 mg HS JIMMIE Administration Verapamil HCl 180 mg 11/20/20 09:00 11/20/20 08:54 Verapamil Hcl 180 Mg Tablet Er PO 1
--- NOTE | 2020-11-20 12:33 | PM.IMPN ---
Progress Note: A&P Assessment and Plan (1) Acute lower GI bleeding: Code(s): K92.2 - Gastrointestinal hemorrhage, unspecified Status: Acute Assessment and Plan: Monitor vital signs and hemoglobin Consult GI PPI transfused 2 units of red blood cells in November 19, 2020 (2) Type 2 diabetes mellitus: Code(s): E11.9 - Type 2 diabetes mellitus without complications Status: Acute Assessment and Plan: Hold metformin while patient in the hospital Monitor blood sugar (3) Essential hypertension: Code(s): I10 - Essential (primary) hypertension Status: Chronic Assessment and Plan: Resume home medications Monitor vital signs closely Subjective Date/time seen: 11/20/20 12:33 Interval history: no more bleeding today, patient received a unit of red blood cells 11/19 Exam Const: General: cooperative and no acute distress HENMT: Head: normal to inspection Eyes: General: appearance normal, both eyes and all related structures Neck: Neck: normal visual inspection Chest: Chest palpation & inspection: normal inspection of the chest Resp: Effort & Inspection: normal respiratory effort Cardio: Jugular venous distension: no JVD Rate: regular rate GI: Inspection: normal to inspection and non-distended Objective Data Vital Signs Vital Signs: Vital Signs - 24 hr 11/19/20 14:00 11/19/20 16:00 11/19/20 16:19 Temperature 97.1 F L Pulse Rate 91 94 59 L Respiratory Rate 20 Blood Pressure 132/105 H Pulse Oximetry 100 11/19/20 18:00 11/19/20 20:00 11/19/20 21:25 Temperature 97.6 F 97.0 F L Pulse Rate 99 93 92 Respiratory Rate 16 18 Blood Pressure 121/63 110/66 Pulse Oximetry 97 98 11/19/20 21:52 11/19/20 22:00 11/19/20 22:52 Temperature 97.9 F 98.0 F Pulse Rate 89 89 92 Respiratory Rate 16 18 Blood Pressure 121/71 112/65 Pulse Oximetry 93 93 11/19/20 23:31 11/19/20 23:50 11/20/20 00:00 Temperature 98 F 98.4 F Pulse Rate 92 91 86 Respiratory Rate 18 20 Blood Pressure 112/65 107/65 Pulse Oximetry 93 95 11/20/20 00:36 11/20/20 00:56 11/20/20 01:56 Temperature 98.5 F 98.3 F 98.3 F Pulse Rate 83 86 82 Respiratory Rate 18 18 18 Blood Pressure 108/63 115/63 110/60 Pulse Oximetry 92 92 94 11/20/20 02:00 11/20/20 02:56 11/20/20 03:22 Temperature 98.1 F 98.1 F Pulse Rate 97 79 79 Respiratory Rate 18 18 Blood Pressure 113/61 113/61 Pulse Oximetry 94 94 11/20/20 03:53 11/20/20 04:00 11/20/20 06:00 Temperature 98 F Pulse Rate 81 87 92 Respiratory Rate 18 Blood Pressure 110/60 Pulse Oximetry 95 11/20/20 07:38 11/20/20 11:32 Temperature 97.6 F 97.6 F Pulse Rate 78 83 Respiratory Rate 18 18 Blood Pressure 134/78 124/54 L Pulse Oximetry 98 95 Intake/Output Intake/Output: Intake & Output 11/17/20 11/18/20 11/19/20 11/20/20 23:59 23:59 23:59 23:59 Intake Total 2222 840 Balance 2222 840 Meds/Results Medications: Active Medications Generic Name Dose Route Start Last Admin Trade Name Freq PRN Reason Stop Dose Admin Gabapentin 300 mg 11/20/20 09:00 11/20/20 08:54 Gabapentin 300 Mg Capsule PO 300 mg QAM JIMMIE Administration Sodium Chloride 1,000 mls @ 75 mls/hr 11/19/20 06:00 11/20/20 05:02 Normal Saline Iv IV CONT 75 mls/hr .[id number] JIMMIE Administration Lisinopril 40 mg 11/20/20 09:00 11/20/20 08:54 Lisinopril 20 Mg Tablet PO 40 mg QAM JIMMIE Administration Simvastatin 10 mg 11/19/20 21:00 11/19/20 21:09 Simvastatin 10 Mg Tablet PO 10 mg HS JIMMIE Administration Verapamil HCl 180 mg 11/20/20 09:00 11/20/20 08:54 Verapamil Hcl 180 Mg Tablet Er PO 180 mg QAM JIMMIE Administration Labs Labs: Laboratory Results - last 24 hr 11/19/20 11/19/20 11/20/20 03:54 18:55 04:48 WBC 5.1 RBC 3.25 L Hgb 7.9 L 9.0 L Hct 25.6 L 28.9 L MCV 88.9 MCH 27.7 MCHC 31.1 L RDW 15.8 H Plt Count 171 MPV 12.1 H Immatur
[2020-11-20 18:11] LABS: Hemoglobin 9.1 g/dL (14.0-18.0)
[2020-11-20 21:04] LABS: Glucose Point of Care 137 mg/dl (65-105)
[2020-11-20] MEDS: SIMVASTATIN 10 MG TABLET PO (21:10)
[2020-11-21] VITALS (7 sets, daily range): BP systolic 110–134; BP diastolic 59–61; PULSE 66–86; RESP 18–20; TEMP 36.4–36.8; O2SAT 92–100
[2020-11-21 01:04] LABS: Hemoglobin 8.5 g/dL (14.0-18.0)
[2020-11-21 05:42] LABS: Hematocrit 26.7 % (42.0-52.0); Hemoglobin 8.5 g/dL (14.0-18.0)
[2020-11-21 07:11] LABS: Glucose Point of Care 113 mg/dl (65-105)
[2020-11-21] MEDS: VERAPAMIL HCL 180 MG TABLET ER PO (08:40)
[2020-11-21] MEDS: PANTOPRAZOLE 40 MG TABLET PO (08:40)
[2020-11-21] MEDS: lisinopriL 20 MG TABLET 40 MG PO (08:40)
[2020-11-21] MEDS: GABAPENTIN 300 MG CAPSULE PO (08:41)
--- NOTE | 2020-11-21 11:22 | P.DS_ITS ---
DS: Admitting Diagnosis Admitting Diagnosis Admitting Diagnosis: GI bleeding DS: Discharge Diagnosis Discharge Diagnosis (1) Acute lower GI bleeding: Code(s): K92.2 - Gastrointestinal hemorrhage, unspecified Status: Acute (2) History of colon polyps: Code(s): Z86.010 - Personal history of colonic polyps Status: Acute DS: Summary Hospital Course Reason for hospitalization: GI bleed Hospital Course: patient with history of recent colonoscopy, and polypectomy, presented with lower GI bleeding, patient received 2 unit of red blood cells dur ing this hospitalization, GI were consulted, bleeding has stopped, hemoglobin and vital signs are stable, plan to discharge patient home and follow-up with GI as an outpatient. Status at Discharge Functional status at discharge: independent ambulation Time Spent with Patient Time attestation: Total time spent providing and/or coordinating discharge services: Time spent: Greater than 30 minutes DS: Data Data Completed and Pending Labs on day of discharge: Labs from last 24 hours 11/21/20 11/21/20 11/21/20 07:03 04:46 00:34 Hgb 8.5 L 8.5 L Hct 26.7 L 27.0 L POC Capillary Glucose 113 H 11/20/20 11/20/20 11/20/20 21:01 17:55 11:14 Hgb 9.1 L 8.9 L Hct 28.0 L 27.6 L POC Capillary Glucose 137 H Discharge Plan Discharge Consulting providers: Ruperto Alberto Discharging Clinician: Karel Ayoub Patient Disposition: Home, Self-Care Activity: as tolerated Diet: regular Patient Instructions: Antibiotic Form Stand Alone Forms: General Discharge Information Follow-up/Referrals: Ruperto Alberto MD [Physician] - 1 Week Discharge Medications: Continued Myrbetriq 25 mg Tablet Extended Release 24 Hr 25 mg PO HS Qty: 30 RF: 1 polyethylene glycol 3350 [Miralax] 17 gram/dose Powder 17 g PO HS RF: 0 guaifenesin [Mucinex] 600 mg Tablet Extended Release 12hr 600 mg PO DAILY PRN (Reason: Allergy Symptoms) RF: 0 simvastatin 10 mg tablet 10 mg PO HS RF: 0 gabapentin 300 mg capsule 300 mg PO QAM RF: 0 lisinopril 40 mg tablet 40 mg PO QAM RF: 0 metformin 500 mg tablet extended release 24hr 500 mg PO QAM RF: 0 verapamil 180 mg tablet extended release 180 mg PO QAM RF: 0 omeprazole 40 mg capsule,delayed release(DR/EC) 40 mg PO DAILY RF: 0 azelastine 137 mcg (0.1 %) aerosol,spray 1 mcg intranasal BID RF: 0 Boswellia, jasiel, turmeric oral tablet 3 tab-cap PO DAILY RF: 0 acetaminophen [Acetaminophen Extra Strength] 500 mg tablet 1,000 mg PO Q6H PRN (Reason: PAIN) RF: 0 catalyn Oral tablet 3 tab-cap PO DAILY RF: 0 vitamin D3-vitamin K2 (MK4) 1,000-100 unit-mcg tablet 1 tablet PO DAILY RF: 0 Date of admission: 11/19/20 05:57 Primary Care Provider: Ivan Bacon Admitting Provider: Nabor Boone V. Attending physician on admission: Karel Ayoub Condition: Stable Quality VTE Prophylaxis VTE prophylaxis: mechanical ordered
[2020-11-21 11:42] LABS: Glucose Point of Care 84 mg/dl (65-105)
[2020-11-21 12:07] LABS: Hematocrit 29.4 % (42.0-52.0); Hemoglobin 9.3 g/dL (14.0-18.0)
== END 2020-11-21 12:35 | disposition home or self-care (01) ==
LOC: ANHED 05:51 → ANH3MEDSUR 06:05 → ANHIMU 10:17
PROVIDERS: Internal Medicine Gastroenterology; Admitting Provider Internal Medicine; Emergency Provider Emergency Medicine; PCP Internal Medicine; Visit Provider Emergency Medicine
DX: K92.2 Gastrointestinal hemorrhage, unspecified (principal); D64.9 Anemia, unspecified; I48.0 Paroxysmal atrial fibrillation; I10 Essential (primary) hypertension; E78.00 Pure hypercholesterolemia, unspecified; E11.9 Type 2 diabetes mellitus without complications; Z85.46 Personal history of malignant neoplasm of prostate; Z87.891 Personal history of nicotine dependence; Z86.010 Personal history of colon polyps; Z79.84 Long term (current) use of oral hypoglycemic drugs
CPT/HCPCS: 36415; 36430; 80048; 80053; 82948; 83735; 84100; 85014; 85018; 85025; 85610; 85730; 86850; 86900; 86901; 86920; 96361; 96374; 99285; A9270; C9113; C9803; G0378; J7030; J7050; P9016; U0003; U0005

== ENCOUNTER 2020-12-08 12:32 | Outpatient (CLI) | payer OTHER, SELFPAY ==
[2020-12-08 14:07] LABS: INR 1.1; Prothrombin Time 13.7 Seconds (11.1-14.7)
[2020-12-08 14:10] LABS: Partial Thromboplastin Time 26.4 SECONDS (22.3-36.8)
== END 2020-12-08 12:33 | disposition home or self-care (01) ==
LOC: ANHSURGERY 12:34
PROVIDERS: PCP Internal Medicine; Visit Provider Urology
DX: N20.0 Calculus of kidney (principal); Z01.818 Encounter for other preprocedural examination
CPT/HCPCS: 36415; 85610; 85730; 87086

== ENCOUNTER 2020-12-08 12:38 | Outpatient (CLI) | payer OTHER, SELFPAY ==
[2020-12-08 13:50] LABS: Prostate Specific Antigen < 0.1 ng/mL (< OR = 4.0)
== END 2020-12-08 12:39 | disposition home or self-care (01) ==
PROVIDERS: PCP Internal Medicine; Visit Provider Nurse Practitioner
DX: Z85.46 Personal history of malignant neoplasm of prostate (principal)
CPT/HCPCS: 36415; 84153

== ENCOUNTER 2020-12-17 01:14 | Day surgery (SDC) | payer OTHER, SELFPAY ==
[2020-12-06 15:19] VITALS: BMI 27.9
[2020-12-17] VITALS (13 sets, daily range): BP systolic 102–129; BP diastolic 60–78; PULSE 58–80; RESP 10–18; TEMP 36–36.1; O2SAT 94–98
--- NOTE | ~2020-12-17 | XR_ITS ---
EXAMINATION: XR abdomen/kub 1V DATE: 12/17/2020 06:36 INDICATION: Nephrolithiasis for planned shockwave lithotripsy TECHNIQUE: A supine view of the abdomen on 2 radiographs was obtained. COMPARISON: 10/13/2020 FINDINGS: Unchanged 7 mm stone at the lower pole of the left kidney. Several tiny splenic calcification consist ent with old granulomatous disease. Postoperative changes are seen in the left and right abdomen and pelvis. Extensive pagetoid changes in the right innominate bone. IMPRESSION: 1. Unchanged 7 mm left renal stone. Reviewed, dictated and finalized at location A.
--- NOTE | 2020-12-17 07:01 | WPDANESEPPF ---
Anes - Initial Pre Proc Eval Procedure: Operation Date: 12/17/20 07:30 Proposed Procedures p Left Renal Extracorporeal Shock Wave Lithotripsy - Elver Holman MD Date/Time: 12/17/20 07:01 Surgeon: Elver Holman MD Pre Op Diagnosis: Left renal Kidney stones Patient Data Age: 80 Gender: M Height: 1.8 m Weight: 91 kg Allergies Allergy/AdvReac Type Severity Reaction Status Date / Time No Known Allergies Allergy Verified 12/08/20 12:18 Home Medications Medication Instructions Recorded Confirmed Type guaifenesin [Mucinex] 600 mg PO DAILY PRN 09/01/20 12/08/20 History polyethylene glycol 3350 [Miralax] 17 g PO HS 09/01/20 12/08/20 History simvastatin 10 mg PO HS 09/01/20 12/08/20 History Myrbetriq 25 mg PO HS #30 tablet 09/27/20 12/08/20 Rx Boswellia, jasiel, turmeric oral 3 tab-cap PO DAILY 10/11/20 12/08/20 History acetaminophen 500 mg tablet 1,000 mg PO Q6H PRN tablet 10/11/20 12/08/20 History catalyn Oral 3 tab-cap PO DAILY 10/11/20 12/08/20 History cholecalciferol (vit D3) 1,000 1 tablet PO DAILY 10/11/20 12/08/20 History unit-vitamin K2 (MK4) 100 mcg tablet azelastine 1 mcg INTRANASAL BID 11/04/20 12/08/20 History omeprazole 40 mg PO DAILY 11/04/20 12/08/20 History verapamil 180 mg PO QAM 11/04/20 12/08/20 History gabapentin 300 mg PO QAM 11/08/20 12/08/20 History lisinopril 40 mg PO QAM 11/08/20 12/08/20 History metformin 500 mg PO QAM 11/08/20 12/08/20 History docusate sodium 100 mg PO DAILY PRN 12/06/20 12/08/20 History Patient hx anesthesia problems: none Family hx anesthesia problems: none PMFSH Past Medical History Medical History Abnormal PFT (~02/2018) Obstructive ventilatory defect suggested with decreased FVC/SVC but timed flows are normal. Mildly decreased DLCO. Chest CT on 09/23/2020 showed emphysema. Benign paroxysmal positional vertigo Chronic anemia Essential hypertension Gastroesophageal reflux disease Hypercholesteremia Kidney stone Overweight (BMI 25.0-29.9) Paget's disease of bone Pancreatic cyst Prostate cancer Status post radical prostatectomy in 2006. Small bowel obstruction (~04/2018) Type 2 diabetes mellitus Hemoglobin A1c was 6.2% on 09/02/2020. Surgical History Surgical History History of basal cell carcinoma (BCC) History of cardiac cath Reportedly normal History of colonoscopy with polypectomy (~05/2017) Internal hemorrhoids, and melanosis coli noted on colonoscopy performed by Dr. Alberto. Pathology consistent with tubulovillous adenoma History of esophagogastroduodenoscopy (EGD) (~06/2006) Demonstrated esophagitis History of exploratory laparotomy (~1965) History of lateral meniscus repair of right knee (~01/27/20) History of radical prostatectomy (~08/2006) History of tonsillectomy Status post cataract extraction of both eyes with insertion of intraocular lens Family History Family History Mother Diabetes mellitus Heart disease Sibling Diabetes mellitus Father Motor vehicle crash, injury Son Diabetes mellitus Social History Social History Social History: The patient is and lives with his in [place]. He has been 3 times and has been with his current for approximately 26 years. He has a total of 10 children. 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 He has a remote history of smoking and quit 1968. Primary care physician: Dr. Ivan Bacon Code status: Full code Surrogate decision maker: Caprice () Smoking packs per day: 1 Smoking cigarettes per day: 20.0 Years smoked: 10 Smoking pack-years: 10.00 Smoking status: Former smoker Tobacco type: cigarettes Second hand tobacco smoke exposure: No Smoking end date: 11/25/1968 Additional smok
[2020-12-17] MEDS: LACTATED RINGERS 1,000 ML 30 ML IV CONT (07:09)
--- NOTE | 2020-12-17 07:30 | WPDHPUPDATE1 ---
History and Physical Update Update Date/Time: 12/17/20 07:30 History and Physical has been reviewed, including an updated exam of the patient. There are NO changes in the patient's condition. Risks, benefits, and alternatives have been discussed and questions answered. Patient agrees to proceed with procedure. Proceed with left renal eswl
[2020-12-17] MEDS: ceFAZolin 2 GM/D5W 50 ML 2 GM/50 ML BAG IVPB (07:35)
[2020-12-17 07:44] LABS: Glucose Point of Care 119 mg/dl (65-105)
--- NOTE | 2020-12-17 08:13 | W.PM.PROC2 ---
Procedure Note - Detailed Date of Procedure 12/17/20 Pre-op Diagnosis Left renal Kidney stones Post-op Diagnosis same Procedure Performed ESWL of left renal calculus Surgeon Elver Holman MD Anesthesia general Description of Procedure patient is taken to the operative suite and correctly identified. Once anesthesia was obtained the stone was localized in both planes. Two thousand five hundred shocks were given to the stone. There appeared to be good fragmentation. Patient is taken recovery room stable condition. He will follow up in 7-10 days with KUB. Drains No Packing No Pathology none sent Complications No immediate complications Condition stable Disposition PACU
[2020-12-17 08:37] LABS: Glucose Point of Care 113 mg/dl (65-105)
--- NOTE | 2020-12-17 08:41 | SUR.PHASEI ---
Simple mask removed at 0840.
--- NOTE | 2020-12-17 12:12 | SUR.PHASEII ---
1115- Attempted to call Dr. Calle to update him on patient. Patient on room air with oxygen saturation ranging from 88%-98%. No answer at this time. Will continue to monitor oxygen saturation closely and discharge patient home once he meets anesthesia criteria. 1212- Patient's oxygen saturation on room air stable and patient meets anesthesia discharge criteria. Patient verbalized understanding of discharge instructions and discharged home with spouse at this time.
== END 2020-12-17 12:12 | disposition home or self-care (01) ==
PROVIDERS: PCP Internal Medicine; Visit Provider Urology
PROC: (CPT 50590; principal; 2020-12-17 07:30)
DX: N20.0 Calculus of kidney (principal); Z85.46 Personal history of malignant neoplasm of prostate; I10 Essential (primary) hypertension; Z79.82 Long term (current) use of aspirin; Z79.84 Long term (current) use of oral hypoglycemic drugs; E78.00 Pure hypercholesterolemia, unspecified; K86.2 Cyst of pancreas; Z90.79 Acquired absence of other genital organ(s); E11.9 Type 2 diabetes mellitus without complications; D64.9 Anemia, unspecified; H81.10 Benign paroxysmal vertigo, unspecified ear; Z87.891 Personal history of nicotine dependence
CPT/HCPCS: 50590; 36415; 74018; 82948; 84153; 85610; 85730; 87086; J0690; J1170; J2250; J2704; J7120

== ENCOUNTER 2020-12-20 09:55 | Outpatient (CLI) | payer OTHER, SELFPAY ==
--- NOTE | ~2020-12-20 | XR_ITS ---
EXAMINATION: XR abdomen/kub 1V INDICATION: Calcium kidney stone TECHNIQUE: Supine views of the abdomen were obtained on 2 radiographs. COMPARISON: 12/17/2020 FINDINGS: A 7 mm stone previously seen in the left kidney lower pole is no longer identified. No ston e fragments are identified along the expected course of the left ureter. There are surgical clips in the pelvis. 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 A moderate volume of colonic stool is present. IMPRESSION: 1. Changes consistent with interval left lithotripsy without urolithiasis identified. Reviewed, dictated and finalized at location A. IMPRESSION: 1. Changes consistent with interval left lithotripsy without urolithiasis ident ified.
== END 2020-12-20 09:56 | disposition home or self-care (01) ==
LOC: ANHIMG 10:00
PROVIDERS: PCP Internal Medicine; Visit Provider Urology
DX: N20.0 Calculus of kidney (principal)
CPT/HCPCS: 74018

== ENCOUNTER 2021-01-24 12:32 | Emergency (ER) | payer OTHER, SELFPAY ==
[2021-01-24] VITALS (24 sets, daily range): BP systolic 124–152; BP diastolic 58–119; PULSE 69–79; RESP 9–25; TEMP 36.8–36.9; O2SAT 96–100
--- NOTE | ~2021-01-24 | CT_ITS ---
EXAMINATION: CT brain wo con DATE: 01/24/2021 17:12 INDICATION: Syncope TECHNIQUE: Computed tomography (CT) of the head was performed without intravenous contrast. Sagittal and coronal reconstructions were performed. The mA was adjusted according to patient size. Iterative reconstruction technique was employed. The dose-length product was 605.33 mGy-cm. COMPARISON: head CT dated 09/23/2020 FINDINGS: Small subdural hematoma along the right side of the anterior to central falx which extends approximat stephanie 12 cm AP and measuring approximately 2-3 mm thickness throughout the majority of the affected fal x with a small region measuring up to 6 mm in maximal thickness anteriorly. There is also a small jaswant unt of subarachnoid hemorrhage extending for approximately 5 cm AP along the cephalad margin of the c orpus callosum. No acute infarction. There is mild scattered white matter hypoattenuation consistent with chronic small vessel ischemic disease. Symmetric prominence of the sulci and ventricles consist ent with moderate age-appropriate diffuse cerebral volume loss. No mass/mass effect. Changes of bilat eral intraocular lens replacement. The orbits and mastoid air cells are normal. Mild mucosal thickeni ng the right maxillary and bilateral ethmoid sinuses. Intracranial calcified cerebral atherosclerosis is noted. IMPRESSION: 1. Small subdural hematoma along the anterior to central falx and small underlying subarachnoid hemor rhage along the corpus callosum. Dr. Banegas discussed these findings with Dr. Jacobs at 5:22 PM. L ine 2. Age-related changes including moderate diffuse volume loss and mild scattered white matter hypoatt enuation consistent with chronic small vessel ischemic disease. Reviewed, dictated and finalized at location A. IMPRESSION: 1. Small subdural hematoma along the anterior to central falx and small underly ing subarachnoid hemorrhage along the corpus callosum. Dr. Banegas discussed t hese findings with Dr. Jacobs at 5:22 PM. Line 2. Age-related changes including moderate diffuse volume loss and mild scattere d white matter hypoattenuation consistent with chronic small vessel ischemic di sease.
--- NOTE | 2021-01-24 12:36 | ECG_ITS ---
Measurements Intervals [place] Rate: 74 P: 12 HI: 189 QRS: -31 QRSD: 105 T: 13 QT: 385 QTc: 430 Interpretive Statements SINUS RHYTHM LEFT AXIS DEVIATION INCOMPLETE RIGHT BUNDLE BRANCH BLOCK BASELINE ARTIFACT- I, III, AVL, AVF BORDERLINE ECG Electronically Signed On 01-24-2021 16:45:27 CDT by Robinson Hansen D.O.
[2021-01-24 13:07] LABS: Basophils Percent Auto 0.3 % (0.2-1.2); Eosinophils Absolute Auto 0.1 K/mm3 (0-0.3); Eosinophils Percent Auto 1.2 % (0-4.4); Hematocrit 38.9 % (42.0-52.0); Hemoglobin 12.5 g/dL (14.0-18.0); Immature Granulocyte Absolute 0.03 K/mm3 (0.00-0.031); Immature Granulocyte Percent A 0.4 % (0-0.5); Lymphocytes Absolute Auto 0.65 K/mm3 (0.9-3.2); Lymphocytes Percent Auto 8.8 % (18.3-44.2); Mean Corpuscular HGB Conc 32.1 g/dl (32-36); Mean Corpuscular Volume 87.2 fl (80-100); Mean Platelet Volume 12.2 fl (7.4-10.4); Monocytes Absolute Auto 0.5 K/mm3 (0.1-0.6); Monocytes Percent Auto 6.8 % (2.6-8.5); Neutrophils Absolute Auto 6.1 K/mm3 (1.3-6.7); Neutrophils Percent Auto 82.5 % (45.5-73.1); Platelet Count Result 225 k/mm3 (150-375); Red Blood Count 4.46 M/mm3 (4.6-6.20); Red Cell Distribution Width 14.8 % (11.5-14.5); White Blood Count 7.4 K/mm3 (4.5-10.0)
[2021-01-24 13:22] LABS: Anion Gap 10 mmol/L (8-16); Blood Urea Nitrogen 17 mg/dL (9-20); Calcium 9.4 mg/dL (8.4-10.2); Carbon Dioxide 28 mmol/L (22-30); Chloride 98 mmol/L (98-107); Estimated CRCL calculation 60 ml/min; Estimated Glomerular Filt Rate > 60; Glucose 137 mg/dL (65-110); Potassium 4.3 mmol/L (3.4-5.0); Sodium 136 mmol/L (137-145)
--- NOTE | 2021-01-24 17:04 | ED.SYNCOPE ---
HPI - Syncope General Chief Complaint: Fall Stated Complaint: FALL Time Seen by Provider: 01/24/21 16:10 Source: patient Mode of arrival: ambulatory Limitations: no limitations History of Present Illness HPI narrative: Patient is an 80-year-old male brought in by EMS after a syncopal episode at home. Patient states that he cannot recall what happened or why he passed out. states that he was doing yard work, trimming trees, before he passed out. states that she helped him up after he passed out brought him inside the house and had confusion x1 hour but now resolved. Patient is now alert awake and oriented x4, denies any head, neck, chest, abdomen, back, pelvis or any extremity pain/injury. Patient denies any speech or visual disturbance, focal weakness or numbness or unsteady gait. Patient was asymptomatic prior to the syncope. Patient denies any symptoms at this time and has no complaints, I feel fine . Related Data Home Medications Medication Instructions Recorded Confirmed guaifenesin [Mucinex] 600 mg PO DAILY PRN 09/01/20 12/17/20 polyethylene glycol 3350 [Miralax] 17 g PO HS 09/01/20 12/17/20 Boswellia, jasiel, turmeric oral 3 tab-cap PO DAILY 10/11/20 12/17/20 acetaminophen 500 mg tablet 1,000 mg PO Q6H PRN tablet 10/11/20 12/17/20 catalyn Oral 3 tab-cap PO DAILY 10/11/20 12/17/20 cholecalciferol (vit D3) 1,000 1 tablet PO DAILY 10/11/20 12/17/20 unit-vitamin K2 (MK4) 100 mcg tablet azelastine 1 mcg INTRANASAL BID 11/04/20 12/17/20 omeprazole 40 mg PO DAILY 11/04/20 12/17/20 verapamil 180 mg PO QAM 11/04/20 12/17/20 gabapentin 300 mg PO QAM 11/08/20 12/17/20 docusate sodium 100 mg PO DAILY PRN 12/06/20 12/17/20 Allergies Allergy/AdvReac Type Severity Reaction Status Date / Time No Known Allergies Allergy Verified 12/17/20 07:31 Review of Systems Review of Systems: All systems reviewed & are unremarkable except as noted in HPI and below Constitutional: Constitutional: Denies body ache(s), Denies chills, Denies excessive sweating, Denies fatigue, Denies fever(s), Denies headache(s), Denies lethargy, Denies malaise, Denies weakness and Denies weight loss Eyes: Eyes: Denies blurry vision, Denies change in vision and Denies loss of vision ENT: Denies dizziness, Denies ear discharge, Denies headache(s), Denies lip swelling, Denies epistaxis, Denies nasal congestion, Denies neck pain, Denies throat swelling and Denies tongue swelling Cardiovascular: Cardiovascular: Denies chest pain, Denies chest pain at rest, Denies chest pain with activity, Denies diaphoresis, Denies rapid heart rate, Denies edema, Denies irregular heart rhythm, Denies lightheadedness, Denies palpitations, Denies dyspnea and Denies dyspnea on exertion Respiratory: Respiratory: Denies chest congestion, Denies cough, Denies hemoptysis, Denies dyspnea and Denies dyspnea on exertion Gastrointestinal: Gastrointestinal: Denies abdominal pain, Denies melena, Denies hematochezia, Denies diarrhea, Denies nausea, Denies vomiting and Denies hematemesis Musculoskeletal: Musculoskeletal: Denies abnormal gait, Denies deformity, Denies joint swelling, Denies limited range of motion, Denies neck pain and Denies numbness Neurologic: Denies Abnormal speech present, Denies abnormal gait, Denies confusion, Denies dizziness, Denies headache(s), Denies focal weakness, Denies loss of vision, Denies numbness, Denies Other visual disturbances, Denies Sensory deficit (Neuro) and Denies weakness Psychiatric: Psychiatric: Denies confusion, Denies depression, Denies auditory hallucinations, Denies homicidal ideation and Denies suicidal ideation Endocrine: Endocrine: Denies cold intolerance, Denies excessive sweating, Denies fatigue, Denies heat intolerance and Denies palpitations Hematologic/Lymphatic: Hematologic/Lymphatic: Denies easy bleeding and Denies easy bruising Allergic/Immunologic: Allergic/Immunologic: Denies lip swelling, Denies throat swelling and Denies
[2021-01-24] MEDS: LABETALOL HCL INJ 100 MG/20 ML VIAL 10 MG IV PUSH ×2 (17:36→19:17)
[2021-01-24 18:01] LABS: D Dimer 0.75 ug/mL (<0.48)
--- NOTE | 2021-01-24 18:37 | PC.NURSE ---
made contact with [facility] to transfer pt to [facility]. [facility] is in route eta 20 minutes
--- NOTE | 2021-01-24 18:52 | PC.NURSE ---
[facility] made contact informing us that a truck will not be here until 2015
--- NOTE | 2021-01-24 19:00 | PC.NURSE ---
Assumed pt care following report from ROJELIO Kelley.
--- NOTE | 2021-01-24 20:28 | PC.NURSE ---
Addendum entered by Jia Hoffmann 01/24/21 20:59: PER EDP, AMBULANCE SHOULD HAVE BEEN CALLED [facility]. @2046 CALLED [facility] BACK AND REQUESTED [facility]. [facility] ARRIVED AT 2049 Original Note: [facility] called with updated ETA...approximately 2129
== END 2021-01-24 21:00 | disposition short-term general hospital (02) ==
PROVIDERS: Emergency Medicine; Emergency Provider Emergency Medicine; PCP Internal Medicine
DX: I60.9 Nontraumatic subarachnoid hemorrhage, unspecified (principal); I62.01 Nontraumatic acute subdural hemorrhage; I10 Essential (primary) hypertension; K21.9 Gastro-esophageal reflux disease without esophagitis; E78.00 Pure hypercholesterolemia, unspecified; Z87.442 Personal history of urinary calculi; M88.9 Osteitis deformans of unspecified bone; Z85.46 Personal history of malignant neoplasm of prostate; Z90.79 Acquired absence of other genital organ(s); E11.9 Type 2 diabetes mellitus without complications; Z85.828 Personal history of other malignant neoplasm of skin; Z98.42 Cataract extraction status, left eye; Z98.41 Cataract extraction status, right eye; Z96.1 Presence of intraocular lens; Z87.891 Personal history of nicotine dependence; I45.10 Unspecified right bundle-branch block; Z79.84 Long term (current) use of oral hypoglycemic drugs
CPT/HCPCS: 36415; 70450; 80048; 85025; 85380; 93005; 96374; 96376; 99291